=== PATIENT | female | born 1950 | race Two or more races ===

== ENCOUNTER 2022-01-17 23:03 | Inpatient (IN) | payer OTHER ==
[~2022-01-17] VITALS: Ht 172.7 cm; Wt 67.6 kg
--- NOTE | 2022-01-17 23:10 | NUR ---
BIBSELF C/O VOMITING X1 DAY. 20CC OF BLOOD NOTED BY PARAMEDICS AT HOME HX HTN AND THYROID. PT A/OX4. TOLERATING R/A AT 99%; C/O SOB. CONNECTED PT TO POX AND MONITOR. SAFETY MEASURES IN PLACE.
--- NOTE | 2022-01-17 23:20 | NUR ---
DR. ISAÍAS GRIMES AT PT'S BEDSIDE
--- NOTE | 2022-01-17 23:26 | NUR ---
RAC #18G S/L; BLOOD COLLECTED AND SENT TO LAB
[2022-01-17] MEDS ORDERED: MORPHINE SULFATE INJ 2 MG/ML DISP.SYRIN IV ONE (23:30)
[2022-01-17] MEDS ORDERED: IV NS 0.9% 1,000 ML BAG IV ONE (23:30)
[2022-01-17] MEDS ORDERED: PANTOPRAZOLE 40 MG VIAL IV ONE (23:30)
[2022-01-17] MEDS ORDERED: ONDANSETRON HCL/PF 4 MG/2 ML VIAL IVP ONE (23:30)
--- NOTE | 2022-01-17 23:32 | NUR ---
COVID ANTIGEN SWAB COLLECTED AND SENT TO LAB
[2022-01-17] MEDS ORDERED: PANTOPRAZOLE 40 MG VIAL ONE (23:34)
[2022-01-17] MEDS ORDERED: ONDANSETRON HCL/PF 4 MG/2 ML VIAL ONE (23:34)
[2022-01-17] MEDS ORDERED: MORPHINE SULFATE INJ 4 MG/ML DISP.SYRIN ONE (23:35)
--- NOTE | 2022-01-17 23:45 | NUR ---
PT TAKEN TO CT VIA MEI
[2022-01-17 23:46] LABS: BASOPHILS % (AUTO) 0.4 % (0.0-2.0); EOSINOPHILS % (AUTO) 2.3 % (0.0-6.0); HEMATOCRIT 32 % (33-45); HEMOGLOBIN 10.7 g/dL (11.5-14.8); LYMPHOCYTES # (AUTO) 3.8 K/uL (0.8-4.8); LYMPHOCYTES % (AUTO) 36.8 % (20.0-44.0); MEAN CORPUSCULAR HGB CONC 33 g/dl (31.0-36.0); MEAN CORPUSCULAR VOLUME 88 fL (82-100); MONOCYTES # (AUTO) 0.9 K/uL (0.1-1.30); NEUTROPHILS # (AUTO) 5.2 K/uL (1.8-8.9); NEUTROPHILS % (AUTO) 51.5 % (43.0-81.0); PLATELET COUNT (AUTO) 225 K/uL (150-450); RED BLOOD CELL COUNT(AUTO) 3.68 MIL/uL (4.0-5.2); WHITE BLOOD COUNT (AUTO) 10.2 K/uL (4.3-11.0)
--- NOTE | 2022-01-18 00:04 | NUR ---
PT RETURNED TO ER BED [address]
[2022-01-18 00:06] LABS: ALANINE AMINOTRANSFERASE 67 U/L (12-78); ALBUMIN 2.9 g/dL (3.4-5.0); ALKALINE PHOSPHATASE 132 U/L (46-116); ASPARTATE AMINOTRANSFERASE 46 U/L (15-37); BILIRUBIN,DIRECT 0.1 mg/dL (0.0-0.2); BILIRUBIN,TOTAL 0.5 mg/dL (0.2-1.0); CALCIUM, SERUM 8.6 mg/dL (8.5-10.1); CARBON DIOXIDE 25 mmol/L (21-32); CHLORIDE 105 mmol/L (98-107); CREATININE 0.6 mg/dL (0.6-1.3); GLUCOSE 147 mg/dL (74-106); LIPASE 75 U/L (73-393); POTASSIUM 4.3 mmol/L (3.5-5.1); SODIUM SERUM 136 mmol/L (136-145); TOTAL PROTEIN, SERUM 6.4 g/dL (6.4-8.2); UREA NITROGEN, BLOOD 22 mg/dL (7-18)
--- NOTE | 2022-01-18 00:17 | NUR ---
LACTIC ACID 2.0
[2022-01-18] MEDS ORDERED: OCTREOTIDE 50 MCG in IV NS 0.9% 50 ML IJ ONE (00:30)
[2022-01-18] MEDS ORDERED: CEFTRIAXONE 1GM BAG (ER ONLY) 1 GM/50 ML PIGGYBACK IV ONE (00:30)
[2022-01-18 00:31] LABS: BILIRUBIN,URINE NEGATIVE (NEGATIVE); COLOR,URINE YELLOW (YELLOW); NITRITE, URINE NEGATIVE (NEGATIVE); PROTEIN,URINE NEGATIVE (NEGATIVE); UGLUCOSE NEGATIVE (NEGATIVE); UROBILINOGEN,URINE 0.2 EU/dL (0.2)
[2022-01-18 00:33] LABS: LEUKOCYTE ESTERASE ,URINE NEGATIVE (NEGATIVE)
--- NOTE | 2022-01-18 00:35 | NUR ---
JOHNATHON SMITH MD PAGED FOR GI CONSULT. AWAITING CALL BACK
[2022-01-18] MEDS ORDERED: CEFTRIAXONE 1GM BAG (ER ONLY) 50 ML IV ONE (00:46)
[2022-01-18] MEDS ORDERED: ONDANSETRON HCL/PF 4 MG/2 ML VIAL ONE (00:46)
[2022-01-18] MEDS ORDERED: PANTOPRAZOLE 40 MG VIAL ONE ×3 (00:46→08:28)
[2022-01-18] MEDS ORDERED: OCTREOTIDE 100 MCG/ML VIAL ONE (00:51)
[2022-01-18] MEDS ORDERED: ONDANSETRON HCL/PF 4 MG/2 ML VIAL IV ONE (01:00)
[2022-01-18] MEDS ORDERED: PANTOPRAZOLE 40 MG VIAL IV ONE (01:00)
--- NOTE | 2022-01-18 01:00 | NUR ---
Dr Hull on the phone w/ Dr Duncan [facility]
[2022-01-18] MEDS: PANTOPRAZOLE 80 MG in IV NS 0.9% 500 ML IV PRN (01:03)
--- NOTE | 2022-01-18 01:11 | NUR ---
CLINICAL REPORT GIVEN TO BUSINESS COMPUTERS TEACHER
--- NOTE | 2022-01-18 01:54 | NUR ---
called gutierrez @ [phone] and got a verbal auth to admit the patient Addendum: 01/18/22 at 0156 by RAYMOND kathia whitley registered nurse hh case manager.
[2022-01-18] MEDS ORDERED: LEVO100T9 PO (01:59)
[2022-01-18] MEDS ORDERED: AMLO5TAB4 PO (01:59)
[2022-01-18] MEDS ORDERED: ATOR20TA PO (01:59)
--- NOTE | 2022-01-18 02:20 | NUR ---
DR LOUIE FROM [facility] ON THE PHONE WITH DR METZ
--- NOTE | 2022-01-18 02:37 | NUR ---
CALLED DR GARCES. PER HIM HE IS ON VACATION AND DR REDMAN IS COVERING HIM. PLACED MULTIPLE PHONE CALLS TO [phone] AND [phone]. UNABLE TO PAGE DR REDMAN THEY ARE COVERING PALLAVI AND ROGELIO ARE ONLY!
--- NOTE | 2022-01-18 04:55 | NUR ---
SENT A MESSAGE TO DR REDMAN. UNABLE TO CONTACT HIM
--- NOTE | 2022-01-18 06:35 | NUR ---
ON THE PHONE WITH [facility] AT [phone] FOR 30 MINUTES, SPOKE TO ONELIA, NURSE MILK PICKUP DRIVER. UNABLE TO HELP TO PAGE [facility]. PLACED MULTIPLE PHONE CALLS TO [phone], WAS TOLD THAT THEY ONLY COVER [facility].
[2022-01-18] MEDS ORDERED: CHOL100043 PO (07:19)
--- NOTE | 2022-01-18 07:19 | NUR ---
PER KIZZY DAVIS TO ADMIT THE PATIENT UNDER EPIC
--- NOTE | 2022-01-18 07:21 | NUR ---
PAGED DR SOTO
[2022-01-18] MEDS ORDERED: hydrALAZINE HCL IV 20 MG VIAL IV PRN (08:00)
[2022-01-18] MEDS ORDERED: ONDANSETRON HCL/PF 4 MG/2 ML VIAL IVP PRN (08:00)
[2022-01-18] MEDS ORDERED: ACETAMINOPHEN 325 MG TABLET PO PRN (08:00)
[2022-01-18] MEDS ORDERED: MORPHINE SULFATE INJ 2 MG/ML DISP.SYRIN IV PRN (08:00)
[2022-01-18 08:10] LABS: HEMOGLOBIN 10.1 g/dL (11.5-14.8)
[2022-01-18] MEDS ORDERED: LEVOTHYROXINE SODIUM 50 MCG TABLET ONE (08:28)
[2022-01-18] MEDS ORDERED: AMLODIPINE BESYLATE 5 MG TABLET ONE (08:28)
[2022-01-18] MEDS: PANTOPRAZOLE 40 MG VIAL IV SCH ×2 (08:30→17:13)
[2022-01-18] MEDS: AMLODIPINE BESYLATE 5 MG TABLET PO SCH (08:32)
[2022-01-18] MEDS: IV NS 0.9% 1,000 ML IV SCH ×2 (08:46→21:14)
[2022-01-18] MEDS: ATORVASTATIN 10 MG TABLET PO SCH (09:00)
[2022-01-18] MEDS: CHOLECALCIFEROL 1,000 UNIT TABLET (VIT D3) PO SCH (09:00)
[2022-01-18] MEDS ORDERED: ATORVASTATIN 10 MG TABLET ONE ×2 (10:16→10:18)
[2022-01-18] MEDS ORDERED: CHOLECALCIFEROL 1,000 UNIT TABLET (VIT D3) ONE ×2 (10:16→10:17)
--- NOTE | 2022-01-18 10:19 | NUR ---
ROOM 304-2
--- NOTE | 2022-01-18 10:22 | NUR ---
REPORT GIVEN TO NURSE BURCH FOR KAMINI
--- NOTE | 2022-01-18 10:25 | NUR ---
MS RN OPENING NOTES RECEIVED PATIENT FROM ER @ 1025, REPORT WAS GIVEN BY JESUS LEE. PT COMPLAINED OF NAUSEA AND VOMITING, AND HAS A HISTORY OF 6 HEMATEMESIS. VITAL SIGNS ARE STABLE: 117/56, HR: 68, 98%, 0/10, RR: 18; TEMP: 97.9. RA, AND NO S/S OF SOB, DISTRESS, AND DISCOMFORT. NO PRESENT OF N/V AT THIS MOMENT, AND 0/10 PAIN. IV IN R AC 18G AND L AC 18G, INTACT AND PATENT: BOTH SL. WILL CONTINUE TO MONITOR FOR KAMINI.
--- NOTE | 2022-01-18 10:37 | NUR ---
THE PATIENT IS TRANSFERED TO ROOM 304-2 IN STABLE CONDITION AND PER POLICY.
[2022-01-18 12:52] VITALS: BP 117/56
[2022-01-18 16:18] LABS: HEMOGLOBIN 9.6 g/dL (11.5-14.8)
--- NOTE | 2022-01-18 18:19 | NUR ---
MS RN CLOSING NOTES PATIENT IS AWAKE, ALERT, AND ORIENTED X 4. RA, NO S/S OF DISTRESS AND SOB. CURRENTLY, PATIENT HAS NO N/V, BUT STILL HAVE STOMACH DISCOMFORT. VITAL SIGN IS WITHIN NORMAL LIMITS. H&H IS STILL LOW: HBG @08:03: 10.1, 16:08: 9.6; HCT: 30 & 29. 0/10 PAIN. IV IN R AC 18G AND L AC 18G, INTACT AND PATENT: BOTH SL. WILL ENDORSE TO INCOMING SHIFT FOR KAMINI.
--- NOTE | 2022-01-18 19:32 | NUR ---
RN OPENING NOTES RECEIVED PT IN BED, AWAKE, WITH VISITORS AT BEDSIDE. AOx4, ALBANIAN SPEAKING AND ABLE TO MAKE NEEDS KNOWN. ON RA AND TOLERATING WELL. NO SOB NOTED. NO S/SX OF RESPIRATORY DISTRESS NOTED. IV ACCESS IN RAC #18G AND LAC #18G RUNNING NS @ 75 ML/HR. SAFETY PRECAUTIONS IN PLACE: BED IN LOWEST, LOCKED POSITION, SIDERAILS UPx2, AND BRAKES ON. TABLE AND CALL LIGHT WITHIN REACH. WILL CONTINUE TO MONITOR.
[2022-01-18 20:00] VITALS: BP 111/48
[2022-01-19 00:40] LABS: HEMOGLOBIN 8.8 g/dL (11.5-14.8)
[2022-01-19 06:20] LABS: ALBUMIN 2.4 g/dL (3.4-5.0); BILIRUBIN,TOTAL 0.5 mg/dL (0.2-1.0); CALCIUM, SERUM 7.8 mg/dL (8.5-10.1); CREATININE 0.7 mg/dL (0.6-1.3); PHOSPHORUS 3.4 mg/dL (2.5-4.9); POTASSIUM 3.8 mmol/L (3.5-5.1); TOTAL PROTEIN, SERUM 5.5 g/dL (6.4-8.2)
--- NOTE | 2022-01-19 06:32 | NUR ---
RN CLOSING NOTES PT IN BED, ASLEEP. AOx4, MALTESE SPEAKING AND ABLE TO MAKE NEEDS KNOWN. ON RA AND TOLERATING WELL. NO SOB NOTED. NO S/SX OF RESPIRATORY DISTRESS NOTED. IV ACCESS IN RAC #18G AND LAC #18G RUNNING NS @ 75 ML/HR. NO EPISODES OF HEMATEMESIS. ALL ORDERS CARRIED OUT. ALL NEEDS MET. PT KEPT CLEAN AND DRY. SAFETY PRECAUTIONS IN PLACE: BED IN LOWEST, LOCKED POSITION, SIDERAILS UPx2, AND BRAKES ON. TABLE AND CALL LIGHT WITHIN REACH. WILL ENDORSE TO ONCOMING SHIFT FOR KAMINI.
[2022-01-19 06:41] LABS: BASOPHILS % (AUTO) 0.7 % (0.0-2.0); HEMATOCRIT 26 % (33-45); HEMOGLOBIN 8.8 g/dL (11.5-14.8); LYMPHOCYTES # (AUTO) 1.8 K/uL (0.8-4.8); LYMPHOCYTES % (AUTO) 30.3 % (20.0-44.0); MEAN CORPUSCULAR HGB CONC 34 g/dl (31.0-36.0); MEAN CORPUSCULAR VOLUME 87 fL (82-100); MONOCYTES # (AUTO) 0.5 K/uL (0.1-1.30); MONOCYTES % (AUTO) 8.9 % (2.0-12.0); NEUTROPHILS # (AUTO) 3.4 K/uL (1.8-8.9); NEUTROPHILS % (AUTO) 56.1 % (43.0-81.0); PLATELET COUNT (AUTO) 188 K/uL (150-450); RED BLOOD CELL COUNT(AUTO) 2.99 MIL/uL (4.0-5.2)
[2022-01-19] MEDS: LEVOTHYROXINE SODIUM 100 MCG TABLET PO SCH (07:30)
--- NOTE | 2022-01-19 07:30 | NUR ---
RN MS NOTES PT IN BED, AWAKE, ALERT AND ORIENTED, NO COMPLAINT OF PAIN AT THIS TIME, RESPIRATIONS NORMAL, CALL LIGHT WITHIN REACH, ABLE TO AMBULATE WITH SLOW AND STEADY GAIT TO THE BATHROOM, NEEDS ATTENDED.
[2022-01-19 08:30] LABS: HEMOGLOBIN 8.9 g/dL (11.5-14.8)
[2022-01-19] MEDS: AMLODIPINE BESYLATE 5 MG TABLET PO SCH (09:00)
[2022-01-19] MEDS: CHOLECALCIFEROL 1,000 UNIT TABLET (VIT D3) PO SCH (09:00)
[2022-01-19] MEDS: ATORVASTATIN 10 MG TABLET PO SCH (09:00)
[2022-01-19] MEDS: PANTOPRAZOLE 40 MG VIAL IV SCH ×2 (09:36→17:16)
[2022-01-19 16:15] LABS: HEMOGLOBIN 9.7 g/dL (11.5-14.8)
[2022-01-19] MEDS ORDERED: ANESTHESIA TRAY IN PYXIS 1 EA TRAY MC ONE (16:32)
--- NOTE | 2022-01-19 17:52 | NUR ---
RN MS NOTES PT AWAKE, ALERT AND ORIENTED, DENIES PAIN AT THIS TIME, NOT IN DISTRESS, CONSENTS SIGNED BY PT, PICKED UP BY O.R. STAFF FOR EGD, LEFT VIA BED IN STABLE CONDITION.
[2022-01-19] MEDS ORDERED: FAMOTIDINE/PF INJ 20 MG/2 ML VIAL IV ONE (17:55)
[2022-01-19] MEDS ORDERED: OCTREOTIDE 50 MCG in IV NS 0.9% 50 ML IJ ONE (18:30)
[2022-01-19] MEDS ORDERED: CEFTRIAXONE 1 G VIAL IM SCH (18:30)
[2022-01-19 18:45] VITALS: BP 156/51
--- NOTE | 2022-01-19 18:45 | NUR ---
RN MS NOTES PT BACK FROM O.R. VIA BED, AWAKE, ALERT AND ORIENTED, POST PROCEDURE ORDER RECEICED, WITH COMPLAINT OF SOME THROAT DISCOMFORT, DR. CESAR MACEDO, ORDERED TO START PATIENT ON CLEAR LIQUID DIET AND SANDOSTATIN DRIP, VITALS TAKEN AND RECORDED, ALL NEEDS ATTENDED.
[2022-01-19] MEDS: OCTREOTIDE 1,250 MCG in IV NS 0.9% 247.5 ML IV SCH (19:29)
--- NOTE | 2022-01-19 19:30 | NUR ---
RN OPENING NOTES PT IN BED, AWAKE, SPEAKING WITH FAMILY. AOx4. PATIENT IS STABLE. WILL CONTINUE TO MONITOR.
[2022-01-19 20:00] VITALS: BP 146/58
[2022-01-19] MEDS ORDERED: CEFTRIAXONE 1 G in IV D5W 50 ML IV SCH (20:00)
[2022-01-20] MEDS: OCTREOTIDE 1,250 MCG in IV NS 0.9% 247.5 ML IV SCH (05:40)
[2022-01-20 06:28] LABS: BASOPHILS # (AUTO) 0.1 K/uL (0.0-0.2); BASOPHILS % (AUTO) 0.6 % (0.0-2.0); EOSINOPHILS % (AUTO) 0.4 % (0.0-6.0); HEMATOCRIT 29 % (33-45); HEMOGLOBIN 9.7 g/dL (11.5-14.8); LYMPHOCYTES # (AUTO) 1.5 K/uL (0.8-4.8); LYMPHOCYTES % (AUTO) 16.4 % (20.0-44.0); MEAN CORPUSCULAR HGB CONC 34 g/dl (31.0-36.0); MEAN CORPUSCULAR VOLUME 85 fL (82-100); MONOCYTES # (AUTO) 0.6 K/uL (0.1-1.30); MONOCYTES % (AUTO) 6.5 % (2.0-12.0); NEUTROPHILS # (AUTO) 6.9 K/uL (1.8-8.9); NEUTROPHILS % (AUTO) 76.1 % (43.0-81.0); PLATELET COUNT (AUTO) 234 K/uL (150-450); RED BLOOD CELL COUNT(AUTO) 3.34 MIL/uL (4.0-5.2); WHITE BLOOD COUNT (AUTO) 9.1 K/uL (4.3-11.0)
--- NOTE | 2022-01-20 06:38 | NUR ---
RN CLOSING NOTES PT IN BED, AWAKE, WATCHING TV. AOx4, MALTESE SPEAKING. ON RA AND TOLERATING WELL. NO SOB NOTED. NO S/SX OF RESPIRATORY DISTRESS NOTED. IV ACCESS IN RAC #18 RUNNING SANDOSTATIN @ 25 ML/HR. SAFETY PRECAUTIONS IN PLACE: BED IN LOWEST, LOCKED POSITION, SIDERAILS UPx2, AND BRAKES ON. TABLE AND CALL LIGHT WITHIN REACH. WILL CONTINUE TO MONITOR. Addendum: 01/20/22 at 0643 by JONNA WOODS RN WILL ENDORSE TO ONCOMING SHIFT FOR KAMINI.
[2022-01-20 07:05] LABS: CALCIUM, SERUM 8.4 mg/dL (8.5-10.1); CREATININE 0.7 mg/dL (0.6-1.3); POTASSIUM 3.9 mmol/L (3.5-5.1)
--- NOTE | 2022-01-20 07:30 | NUR ---
MS RN OPENING NOTES RECEIVED PATIENT ON BED, AWAKE AND A/O X4. ON ROOM AIR TOLERATING WELL. NO SOB NOTED. NOT IN DISTRESS. WITH NO COMPLAINTS OF PAIN AT THIS TIME. WITH IV ACCESS AT THE RIGHT AC G18 WITH SANDOSTATIN DRIP AT 25ML/HR INFUSING WELL. SAFETY MEASURES IN PLACED. CALL LIGHT WITHIN REACH. BED ON LOWEST LOCKED POSITION, SIDE RAILS UP X2. WILL CONTINUE TO MONITOR.
[2022-01-20 08:00] VITALS: BP 151/50
[2022-01-20 08:36] LABS: HEMOGLOBIN 10.1 g/dL (11.5-14.8)
[2022-01-20] MEDS: LEVOTHYROXINE SODIUM 100 MCG TABLET PO SCH (08:36)
[2022-01-20 08:37] VITALS: BP 151/50
[2022-01-20] MEDS: AMLODIPINE BESYLATE 5 MG TABLET PO SCH (08:37)
[2022-01-20] MEDS: ATORVASTATIN 10 MG TABLET PO SCH (08:37)
[2022-01-20] MEDS: PANTOPRAZOLE 40 MG VIAL IV SCH ×2 (08:37→17:05)
[2022-01-20] MEDS: CHOLECALCIFEROL 1,000 UNIT TABLET (VIT D3) PO SCH (08:37)
[2022-01-20] MEDS ORDERED: OCTREOTIDE 1,250 MCG in IV NS 0.9% 247.5 ML IV SCH (15:00)
[2022-01-20 16:28] LABS: HEMOGLOBIN 9.7 g/dL (11.5-14.8)
--- NOTE | 2022-01-20 18:22 | NUR ---
MS COMPUTER DRAFTER NOTES PATIENT WAS SEEN BY DR. REDMAN AND ORDERED PATIENT FOR DISCHARGE WHEN PATIENT IS ABLE TO TOLERATE FULL LIQUID DIET. PATIENT WAS ABLE TO TOLERATE FULL LIQUID DIET. PATIENT IS FOR DISCHARGE TO HOME. DISCHARGE INSTRUCTION AND EDUCATION PROVIDED TO PATIENT AND EXPLAINED MEDICATIONS AND PRESCRIPTIONS. PATIENT VERBALIZED UNDERSTANDING. DISCHARGE FORM AND BELONGINGS LIST SIGNED BY THE PATIENT. NAME WRIST BAND AND IV LINE REMOVED. ACCOMPANIED PATIENT TO THE LOBBY VIA WHEELCHAIR IN STABLE CONDITION AND LEFT VIA PRIVATE CARE WITH GRAND DAUGHTER. MD AND CHARGE NURSE ARE AWARE OF THE DISCHARGE.
== END 2022-01-20 18:22 | disposition home or self-care (01) | DRG 432 ==
LOC: ER 23:05 → TELE 01-18 10:22 → MED 01-18 10:56
PROVIDERS: ADMIT Internal Medicine; ATTEND Internal Medicine
PROC: 06L38CZ Occlusion of Esophageal Vein with Extraluminal Device, Via Natural or Artificial Opening Endoscopic (ICD-10-PCS; principal; 2022-01-19)
DX: K70.9 Alcoholic liver disease, unspecified (principal); I85.11 Secondary esophageal varices with bleeding; D62 Acute posthemorrhagic anemia; K76.6 Portal hypertension; E03.9 Hypothyroidism, unspecified; K31.89 Other diseases of stomach and duodenum; I10 Essential (primary) hypertension; Z79.899 Other long term (current) drug therapy; E78.5 Hyperlipidemia, unspecified; D64.9 Anemia, unspecified; Z20.822 Contact with and (suspected) exposure to COVID-19
CPT/HCPCS: 36415; 71045-TC; 80048-TC; 80053-TC; 80076-TC; 83605-TC; 83690-TC; 83735-TC; 84100-TC; 84484-TC; 85025-TC; 85027-TC; 85610-TC; 85730-TC; 86850-TC; 87081-TC; C9113; C9803; G0378; J0696; J2270; J2354; J2405; J2704; J2765; J3490; J7030; J7040; J7050; J7060

== ENCOUNTER 2022-02-24 08:45 | Inpatient (IN) | payer OTHER ==
[~2022-02-24] VITALS: Ht 154.9 cm; Wt 64.9 kg
[~2022-02-24 08:45] MED LIST: AMLO5TAB4 PO; ATOR20TA PO; CHOL100043 PO; LEVO100T9 PO
[2022-02-24] MEDS ORDERED: IV NS 0.9% 1,000 ML BAG IV ONE (09:00)
[2022-02-24] MEDS ORDERED: ONDANSETRON HCL/PF - ER 4 MG/2 ML VIAL IV ONE (09:00)
--- NOTE | 2022-02-24 09:00 | NUR ---
Patient came in to the er c/o abdominal discomfort, nausea vomiting "blood" since this morning. On room air, breathing evenly and unlabored. Connected to the monitor and pulse ox. kept comfortable, will continue to monitor accordingly.
[2022-02-24] MEDS ORDERED: ONDANSETRON HCL/PF 4 MG/2 ML VIAL ONE (09:08)
[2022-02-24] MEDS ORDERED: PANTOPRAZOLE 40 MG VIAL ONE (09:13)
[2022-02-24 09:18] LABS: BASOPHILS # (AUTO) 0.1 K/uL (0.0-0.2); BASOPHILS % (AUTO) 0.8 % (0.0-2.0); HEMATOCRIT 29 % (33-45); HEMOGLOBIN 9.4 g/dL (11.5-14.8); LYMPHOCYTES # (AUTO) 1.9 K/uL (0.8-4.8); LYMPHOCYTES % (AUTO) 20.8 % (20.0-44.0); MEAN CORPUSCULAR HGB CONC 33 g/dl (31.0-36.0); MEAN CORPUSCULAR VOLUME 85 fL (82-100); MONOCYTES # (AUTO) 0.8 K/uL (0.1-1.30); MONOCYTES % (AUTO) 8.2 % (2.0-12.0); NEUTROPHILS # (AUTO) 6.4 K/uL (1.8-8.9); NEUTROPHILS % (AUTO) 69.2 % (43.0-81.0); PLATELET COUNT (AUTO) 324 K/uL (150-450); RED BLOOD CELL COUNT(AUTO) 3.41 MIL/uL (4.0-5.2); WHITE BLOOD COUNT (AUTO) 9.2 K/uL (4.3-11.0)
--- NOTE | 2022-02-24 09:20 | NUR ---
SUBMITTED MOVE SHEET
--- NOTE | 2022-02-24 09:21 | NUR ---
ER MD AND CHIEF OF PLANNING GI ON PHONE CONSULT
[2022-02-24] MEDS ORDERED: PANTOPRAZOLE 40 MG VIAL IV ONE (09:30)
[2022-02-24] MEDS ORDERED: PANTOPRAZOLE 80 MG in IV NS 0.9% 100 ML IV ONE (09:30)
[2022-02-24] MEDS ORDERED: PANTOPRAZOLE 80 MG in IV NS 0.9% 500 ML IV ONE (09:30)
[2022-02-24] MEDS ORDERED: OCTREOTIDE 1,250 MCG in IV NS 0.9% 250 ML IV ONE (09:30)
[2022-02-24] MEDS ORDERED: OCTREOTIDE 50 MCG/ML AMPUL IV ONE (09:30)
[2022-02-24 09:33] LABS: MAGNESIUM 2.3 mg/dL (1.8-2.4)
[2022-02-24] MEDS ORDERED: OCTREOTIDE 100 MCG/ML VIAL ONE (09:35)
[2022-02-24 09:39] LABS: ALANINE AMINOTRANSFERASE 51 U/L (12-78); ALKALINE PHOSPHATASE 155 U/L (46-116); ASPARTATE AMINOTRANSFERASE 49 U/L (15-37); BILIRUBIN,DIRECT 0.2 mg/dL (0.0-0.2); BILIRUBIN,TOTAL 0.5 mg/dL (0.2-1.0); CALCIUM, SERUM 8.4 mg/dL (8.5-10.1); CARBON DIOXIDE 23 mmol/L (21-32); CHLORIDE 102 mmol/L (98-107); CREATININE 0.7 mg/dL (0.6-1.3); GLUCOSE 144 mg/dL (74-106); LIPASE 85 U/L (73-393); POTASSIUM 3.2 mmol/L (3.5-5.1); SODIUM SERUM 135 mmol/L (136-145); TOTAL PROTEIN, SERUM 7.4 g/dL (6.4-8.2); UREA NITROGEN, BLOOD 16 mg/dL (7-18)
[2022-02-24 09:44] LABS: ALCOHOL, BLOOD < 3 mg/dL (0-0)
--- NOTE | 2022-02-24 10:53 | NUR ---
verbali clinicals given to dinesh Delarosa from [facility]
[2022-02-24] MEDS ORDERED: ASCO100031 PO (12:48)
[2022-02-24] MEDS ORDERED: FERR325T23 PO (12:48)
[2022-02-24] MEDS ORDERED: FURO20TA4 PO (12:48)
[2022-02-24] MEDS ORDERED: ANESTHESIA TRAY IN PYXIS 1 EA TRAY MC ONE (13:15)
--- NOTE | 2022-02-24 13:15 | NUR ---
PATIENT SIGNED CONSENT FOR EGD, ANESTHESIA AND BLOOS TRANSFUSION.
--- NOTE | 2022-02-24 13:20 | NUR ---
WHEELED OUT VIA GURNEY BY OR NURSES IN STABLE CONDITION
--- NOTE | 2022-02-24 14:12 | NUR ---
REPORT GIVEN TO ANATOLY LEE OF MS UNIT
[2022-02-24] MEDS ORDERED: ONDANSETRON HCL/PF 4 MG/2 ML VIAL IV PRN (16:00)
[2022-02-24] MEDS ORDERED: HYDROCODONE/APAP 5/325MG TABLET PO PRN (16:00)
[2022-02-24] MEDS ORDERED: MORPHINE SULFATE INJ 2 MG/ML DISP.SYRIN IV PRN (16:00)
[2022-02-24] MEDS ORDERED: ZOLPIDEM TARTRATE 5 MG TABLET PO PRN (16:00)
[2022-02-24] MEDS ORDERED: ACETAMINOPHEN 325 MG TABLET PO PRN (16:00)
[2022-02-24 16:16] LABS: THYROID STIMULATING HORMONE 3.007 uIU/mL (0.358-3.74)
[2022-02-24] MEDS: CEFTRIAXONE 1 G in IV D5W 50 ML IV SCH (16:37)
[2022-02-24] MEDS: SOD FERRIC GLUC 125 MG in IV NS 0.9% 100 ML IV SCH (17:05)
--- NOTE | 2022-02-24 19:20 | NUR ---
MS RN OPENING NOTES: RECEIVED PATIENT IN BED, AWAKE. A/O X4. NO S/S OF DISTRESS NOTED. NO COMPLAIN OF PAIN. CALL LIGHT WITHIN REACH. BED ALARM ON. BED IN LOWEST AND LOCKED POSITION. HOB ELEVATED.
--- NOTE | 2022-02-24 19:41 | NUR ---
RN CLOSING NOTE PATIENT RECEIVED ON UNIT @ 1450 VIA [employer] FROM SURGERY DEPARTMENT. EGD WITH BANDING PERFORMED DUE TO PATIENT C/O EMESIS WITH BLOOD. 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 PATIENT AMBULATED TO/FROM BATHROOM WITH NEARBY ASSIST. REMAINS ON CLEAR LIQUID DIET UNTIL FURTHER NOTICE. BOTH IV ACCESS SITE TO RAC AND LAC BOTH PATENT AND INTACT. PROTONIX DRIP IN LAC @ 52 ML/HR RUNNING AND SANDOSTATIN RUNNING IN RAC @ 10ML/HR. C/O OF 05/16 PAIN TO AFFECTED AREA. RECEIVED PRN MORPHINE VIA IV @ 1628. TOLERATED WELL AND MEDICATION EFFECTIVE. SAFETY MEASURES IN PLACE WITH BED IN LOWEST POSITION AND LOCKED. CALL LIGHT WITHIN REACH. SIDERAIL UP X2. WILL CONT TO MONITOR.
[2022-02-24 20:00] VITALS: BP 114/47
[2022-02-25 07:01] LABS: BASOPHILS # (AUTO) 0.1 K/uL (0.0-0.2); BASOPHILS % (AUTO) 0.7 % (0.0-2.0); EOSINOPHILS % (AUTO) 1.4 % (0.0-6.0); HEMATOCRIT 25 % (33-45); HEMOGLOBIN 8.1 g/dL (11.5-14.8); LYMPHOCYTES # (AUTO) 1.5 K/uL (0.8-4.8); LYMPHOCYTES % (AUTO) 16.4 % (20.0-44.0); MEAN CORPUSCULAR HGB CONC 33 g/dl (31.0-36.0); MEAN CORPUSCULAR VOLUME 86 fL (82-100); MONOCYTES # (AUTO) 0.9 K/uL (0.1-1.30); MONOCYTES % (AUTO) 9.8 % (2.0-12.0); NEUTROPHILS # (AUTO) 6.4 K/uL (1.8-8.9); NEUTROPHILS % (AUTO) 71.7 % (43.0-81.0); PLATELET COUNT (AUTO) 261 K/uL (150-450); WHITE BLOOD COUNT (AUTO) 8.9 K/uL (4.3-11.0)
--- NOTE | 2022-02-25 07:10 | NUR ---
MS RN OPENING NOTE: RECEIVED PT. IN BED, AWAKE, AOX4. ABLE TO MAKE NEEDS KNOWN. NO COMPLAINTS OF PAIN AT THIS TIME. ON ROOM AIR, WITH NO S/S OF RESPIRATORY DISTRESS. PT. ON CLEAR LIQUID DIET. IV ON R AC #18G SALINE LOCKED, PATENT AND FLUSHING WELL. SHE ALSO HAS L AC #18G WITH SANDOSTATIN RUNNING @ 10ML/HR, INFUSING WELL. BOTH IV SITES HAVE NO S/S OF INFILTRATION AND PHLEBITIS. SAFETY AND FALL PRECAUTIONS IN PLACE: BED IN LOWEST AND LOCKED POSITION, CALL LIGHT AND BELONGINGS WITHIN EASY REACH, SIDE RAILS UP X2, HOB ELEVATED, BED ALARM ON, NON-SLIP SOCKS ON. WILL CONTINUE TO MONITOR FOR ANY CHANGES.
[2022-02-25] MEDS ORDERED: LEVOTHYROXINE SODIUM 100 MCG TABLET PO SCH (07:30)
[2022-02-25 07:39] LABS: ALBUMIN 2.7 g/dL (3.4-5.0); BILIRUBIN,TOTAL 0.6 mg/dL (0.2-1.0); CREATININE 0.6 mg/dL (0.6-1.3); POTASSIUM 3.7 mmol/L (3.5-5.1); TOTAL PROTEIN, SERUM 6.7 g/dL (6.4-8.2)
[2022-02-25 08:00] VITALS: BP 132/73
[2022-02-25] MEDS: PANTOPRAZOLE 40 MG VIAL IV SCH ×2 (08:20→16:53)
[2022-02-25] MEDS ORDERED: PROP80CA51 PO (08:33)
[2022-02-25] MEDS ORDERED: PANT40TA2 PO (08:34)
[2022-02-25] MEDS ORDERED: CHOLECALCIFEROL 1,000 UNIT TABLET (VIT D3) PO SCH (09:00)
[2022-02-25] MEDS ORDERED: ATORVASTATIN 10 MG TABLET PO SCH (09:00)
[2022-02-25] MEDS ORDERED: PROPRANOLOL LA 60 MG CAP.SA.24H PO SCH (09:00)
[2022-02-25] MEDS ORDERED: FUROSEMIDE 20 MG TABLET PO SCH (09:00)
[2022-02-25 12:31] LABS: HEMOGLOBIN 8.1 g/dL (11.5-14.8)
[2022-02-25] MEDS: CEFTRIAXONE 1 G in IV D5W 50 ML IV SCH (14:34)
[2022-02-25] MEDS: SOD FERRIC GLUC 125 MG in IV NS 0.9% 100 ML IV SCH (14:42)
[2022-02-25 16:00] VITALS: BP 121/51
--- NOTE | 2022-02-25 18:33 | NUR ---
INTERNATIONAL GUEST COORDINATOR NOTE: PT. DC'ED BACK TO HOME VIA PRIVATE TRANSPORTATION. PT. WAS PICKED UP BY ELPIDIO ESQUIVEL AND [id number]. PT. IS AMBULATORY, AOX4. ABLE TO MAKE NEEDS KNOWN. NO COMPLAINTS OF PAIN. ON ROOM AIR, BREATHING EVEN AND UNLABORED. VS STABLE. PT. ON FULL LIQUID DIET. MD ORDERED TO ADVANCE DIET TOLERATED ONCE HOME. IV ON R AC #18G REMOVED, PRESSURE APPLIED, DRESSING C/D/I WITH NO SIGNS OF BLEEDING NOTED. WRITTEN DC INSTRUCTIONS, PT. BELONGING LIST SIGNED BY PT. EDUCATION MATERIALS, HOSPITAL RECORDS, NEW/DISCONTINUED/CONTINUED MEDICATION LIST PROVIDED AND EXPLAINED TO PT. SHE VERBALIZED UNDERSTANDING. DR. GARCES HAD SOME ADDENDUM TO FINALIZED MEDICATION LIST: LASIX 20 MG TAB ONCE DAILY TO BE CONTINUED AT HOME FOR 30 DAYS, ALDACTONE 50 MG PO DAILY FOR 30 DAYS. PT. VERBALIZED UNDERSTANDING. PT. LEFT THE UNIT IN A WHEELCHAIR WITH ELPIDIO ESQUIVEL AND [id number]OR[facility] AT 1825.
== END 2022-02-25 18:34 | disposition home or self-care (01) | DRG 369 ==
LOC: ER 08:53 → TELE 13:56 → MED 16:22
PROVIDERS: ADMIT Internal Medicine; ATTEND Internal Medicine
PROC: 06L38CZ Occlusion of Esophageal Vein with Extraluminal Device, Via Natural or Artificial Opening Endoscopic (ICD-10-PCS; principal; 2022-02-24)
DX: I85.01 Esophageal varices with bleeding (principal); D62 Acute posthemorrhagic anemia; K76.6 Portal hypertension; K31.89 Other diseases of stomach and duodenum; E03.9 Hypothyroidism, unspecified; E78.5 Hyperlipidemia, unspecified; I10 Essential (primary) hypertension
CPT/HCPCS: 36415; 71045-TC; 80048-TC; 80053-TC; 80076-TC; 82728-TC; 83690-TC; 83735-TC; 84443-TC; 84484-TC; 85025-TC; 85027-TC; 85730-TC; 87081-TC; 97530-TC; C9113; C9803; G0378; G0480; J0330; J0696; J2270; J2354; J2405; J2704; J2916; J3490; J7030; J7040; J7050; J7060

== ENCOUNTER 2022-04-28 09:24 | Inpatient (IN) | payer OTHER ==
[2022-04-28] VITALS (9 sets, daily range): BP systolic 102–146; BP diastolic 47–58
[~2022-04-28] VITALS: Ht 154.9 cm; Wt 63.5 kg
[~2022-04-28 09:24] MED LIST changes: -AMLO5TAB4 PO; +ASCO100031 PO; +FERR325T23 PO; +PANT40TA2 PO; +PROP80CA51 PO
--- NOTE | 2022-04-28 09:31 | NUR ---
BIB FAMILY C/O VOMITING AND NOTICE BLOOD IN STOOL X1 DAY. PT ATTACHED TO MONITOR, VITALS ARE WITHIN NORMAL LIMITS. PT APPEAR PALES AND WEAK, HAS BLOOD EMESIS UPON ARRIVAL. WARM BLANKET PROVIDED FOR COMFORT.
--- NOTE | 2022-04-28 09:50 | NUR ---
COVID TEST COLLECTED AND SENT
--- NOTE | 2022-04-28 09:51 | NUR ---
DR KOEHLER AT BEDSIDE
[2022-04-28] MEDS ORDERED: PANTOPRAZOLE 80 MG in IV NS 0.9% 100 ML IV ONE (10:00)
[2022-04-28] MEDS ORDERED: IV NS 0.9% 500 ML BAG IV ONE (10:00)
[2022-04-28] MEDS ORDERED: ONDANSETRON HCL/PF 4 MG/2 ML VIAL IVP ONE (10:00)
[2022-04-28] MEDS ORDERED: CEFTRIAXONE 1GM BAG (ER ONLY) 1 GM/50 ML PIGGYBACK IV ONE (10:00)
[2022-04-28] MEDS ORDERED: ONDANSETRON HCL/PF 4 MG/2 ML VIAL ONE (10:06)
[2022-04-28] MEDS ORDERED: CEFTRIAXONE 1GM BAG (ER ONLY) 50 ML IV ONE (10:06)
--- NOTE | 2022-04-28 10:23 | NUR ---
GI CALLED DR. PULIDO LEFT .
--- NOTE | 2022-04-28 10:24 | NUR ---
CONSENT FOR BLOOD TRANSFUSION OBTAINED AND PLACE IN PT'S CHART
--- NOTE | 2022-04-28 10:25 | NUR ---
MOVE SHEET SUBMITTED.
[2022-04-28 10:27] LABS: BASOPHILS # (AUTO) 0.1 K/uL (0.0-0.2); BASOPHILS % (AUTO) 0.7 % (0.0-2.0); EOSINOPHILS % (AUTO) 0.9 % (0.0-6.0); HEMATOCRIT 26 % (33-45); HEMOGLOBIN 8.3 g/dL (11.5-14.8); LYMPHOCYTES # (AUTO) 2.6 K/uL (0.8-4.8); LYMPHOCYTES % (AUTO) 34.4 % (20.0-44.0); MEAN CORPUSCULAR HGB CONC 32 g/dl (31.0-36.0); MEAN CORPUSCULAR VOLUME 80 fL (82-100); MONOCYTES # (AUTO) 0.4 K/uL (0.1-1.30); NEUTROPHILS # (AUTO) 4.4 K/uL (1.8-8.9); PLATELET COUNT (AUTO) 253 K/uL (150-450); RED BLOOD CELL COUNT(AUTO) 3.25 MIL/uL (4.0-5.2); WHITE BLOOD COUNT (AUTO) 7.4 K/uL (4.3-11.0)
[2022-04-28] MEDS ORDERED: OCTREOTIDE 1,250 MCG in IV NS 0.9% 250 ML IV ONE (10:30)
--- NOTE | 2022-04-28 10:30 | NUR ---
DR. PULIDO SPEAKING WITH DR. KOEHLER.
[2022-04-28] MEDS ORDERED: SPIR50TA5 PO (10:34)
[2022-04-28] MEDS ORDERED: AMLO-212 PO (10:34)
[2022-04-28 10:35] LABS: CARBON DIOXIDE 20 mmol/L (21-32); CHLORIDE 106 mmol/L (98-107); CREATININE 0.7 mg/dL (0.6-1.3); GLUCOSE 141 mg/dL (74-106); POTASSIUM 3.8 mmol/L (3.5-5.1); SODIUM SERUM 138 mmol/L (136-145); UREA NITROGEN, BLOOD 22 mg/dL (7-18)
--- NOTE | 2022-04-28 10:35 | NUR ---
PT TAKEN TO CT VIA MEI
[2022-04-28 10:40] LABS: ALANINE AMINOTRANSFERASE 39 U/L (12-78); ALBUMIN 2.4 g/dL (3.4-5.0); ALKALINE PHOSPHATASE 135 U/L (46-116); ASPARTATE AMINOTRANSFERASE 34 U/L (15-37); BILIRUBIN,DIRECT 0.2 mg/dL (0.0-0.2); BILIRUBIN,TOTAL 0.5 mg/dL (0.2-1.0); LIPASE 29 U/L (73-393); TOTAL PROTEIN, SERUM 5.8 g/dL (6.4-8.2)
--- NOTE | 2022-04-28 10:56 | NUR ---
BED 259
--- NOTE | 2022-04-28 11:11 | NUR ---
RODNEY [phone] WILL CALL US BACK.
--- NOTE | 2022-04-28 12:56 | NUR ---
REPORT GIVEN TO MARTHA LEE FOR KAMINI
[2022-04-28] MEDS ORDERED: MORPHINE SULFATE INJ 2 MG/ML DISP.SYRIN IV PRN (13:00)
[2022-04-28] MEDS ORDERED: OCTREOTIDE 1,250 MCG in IV NS 0.9% 247.5 ML IV PRN (13:00)
--- NOTE | 2022-04-28 13:20 | NUR ---
PT TRASNPORTED TO ICU WITH ACLS PROTOCOLS IN PLACE ADN RECIVED BY JESUS THOMAS.
--- NOTE | 2022-04-28 13:30 | NUR ---
insurance legal assistant notes pt arrived on unit in stable condition running gisselle at 10ml/hr and 1 unit of prbc infusing, started by ER. Vital signs wnl. pt dx: GI BLEED. pt has history of htn, hld, gi bleed, and hypothyroidism. no known allergies, full code, skin intact, no wounds. pt is a/o x 4. pt on RA sating at 98%. Iv access at L AC 20G. and R AC 18g. all safety measures in place, fall precautions in place. will cont to wendy. throughout shift.
[2022-04-28] MEDS: PANTOPRAZOLE 80 MG in IV NS 0.9% 500 ML IV PRN ×2 (13:45→23:40)
[2022-04-28] MEDS: SOD FERRIC GLUC 125 MG in IV NS 0.9% 100 ML IV SCH ×2 (15:49→16:05)
[2022-04-28 15:59] LABS: HEMOGLOBIN 8.6 g/dL (11.5-14.8)
[2022-04-28] MEDS: IV D5 LR 1,000 ML IV PRN (16:44)
--- NOTE | 2022-04-28 19:17 | NUR ---
RN Closing Notes pt is resting in bed, pt is a/o x 4. pt on RA sating at 98%. Iv access at L AC 20G. and R AC 18g. running Rossi at 10ml/hr, d5LR @ 100ml/hr, and protonix at 50ml/hr. All safety measures in place, fall precautions in place. will endorse to maintenance technician 3rd shift nurse for samara.
--- NOTE | 2022-04-28 19:30 | NUR ---
RN/ OPENING NOTES REPORT RECEIVED. PATIENT AWAKE AND ALERT A&OX4. ALL VSS. PATIENT SATTING AT 99% ON ROOM AIR. DIET NPO. IV L AC #20G R AC # IV FLUID RUNNING D5LR @100MLS/HR, SANDOSTATIN @ 10MLS/HR, PROTONIX @50MLS/HR. ALL SAFETY FALL PRECAUTIONS IN PLACE BED LOCK ON, BED IN LOWEST POSITION, SIDE RAILS UP, BED ALARM ON, CALL LIGHT WITHIN REACH, PATIENT TAUGHT HOW TO USE CALL LIGHT AND TO USE IT WHEN SHE NEEDS ASSISTANCE. WILL CONTINUE TO MONITOR.
--- NOTE | 2022-04-28 19:45 | NUR ---
RN/NOTE PATIENT WAS PROVIDED WITH WARM BLANKETS. PATIENT RESTING COMFORTABLE ON THE BED. ALL SAFETY FALL PRECAUTIONS IN PLACE.
[2022-04-28 21:00] LABS: HEMOGLOBIN 7.6 g/dL (11.5-14.8)
[2022-04-29] VITALS (50 sets, daily range): BP systolic 102–159; BP diastolic 34–73
[2022-04-29] MEDS: IV D5 LR 1,000 ML IV PRN ×2 (02:01→22:15)
[2022-04-29 04:32] LABS: BASOPHILS % (AUTO) 0.3 % (0.0-2.0); EOSINOPHILS % (AUTO) 1.7 % (0.0-6.0); HEMATOCRIT 22 % (33-45); HEMOGLOBIN 7.1 g/dL (11.5-14.8); LYMPHOCYTES # (AUTO) 2.5 K/uL (0.8-4.8); LYMPHOCYTES % (AUTO) 19.5 % (20.0-44.0); MEAN CORPUSCULAR HGB CONC 32 g/dl (31.0-36.0); MEAN CORPUSCULAR VOLUME 84 fL (82-100); MONOCYTES # (AUTO) 1.1 K/uL (0.1-1.30); MONOCYTES % (AUTO) 8.4 % (2.0-12.0); NEUTROPHILS # (AUTO) 8.9 K/uL (1.8-8.9); NEUTROPHILS % (AUTO) 70.1 % (43.0-81.0); PLATELET COUNT (AUTO) 195 K/uL (150-450); RED BLOOD CELL COUNT(AUTO) 2.64 MIL/uL (4.0-5.2); WHITE BLOOD COUNT (AUTO) 12.7 K/uL (4.3-11.0)
[2022-04-29 04:42] LABS: CALCIUM, SERUM 7.6 mg/dL (8.5-10.1); CARBON DIOXIDE 22 mmol/L (21-32); CHLORIDE 110 mmol/L (98-107); CREATININE 0.8 mg/dL (0.6-1.3); GLUCOSE 157 mg/dL (74-106); SODIUM SERUM 140 mmol/L (136-145); UREA NITROGEN, BLOOD 15 mg/dL (7-18)
--- NOTE | 2022-04-29 07:15 | NUR ---
RN NOTE RECEIVED PATIENT IN BED RESTING ALERT ORIENTED X4 ON 2L OXYGEN VIA NASAL CANNULA O2:97% IV SITE IS ON RIGHT AC INTACT PATENT,PATIENT ON D5LR 100CC/HR AND PROTONIX 50CC/HR,CONTIENT BOWEL/BLADDER,NPO FOR EGD TODAY,SAFETY MEASURE IMPLEMENT BED IN LOW POSITON AND LOCKED,CALL LIGHT WITHIN REACH CONTINUE TO MONITOR.
--- NOTE | 2022-04-29 07:24 | NUR ---
RN/ OPENING NOTES REPORT GIVEN. PATIENT AWAKE AND ALERT A&OX4. ALL VSS. PATIENT SATTING AT 99% ON 2L NC. DIET NPO. IV R AC # IV FLUID RUNNING D5LR @100MLS/HR, SANDOSTATIN @ 10MLS/HR STOPPED DUE TO PATIENT PULLING OUT HER IV SEVERAL ATTEMPTS WERE MADE TO REINSERT BUT SEVERAL NURSES WERE NOT ABLE TO PUT ANOTHER IV., PROTONIX @50MLS/HR. ALL SAFETY FALL PRECAUTIONS IN PLACE BED LOCK ON, BED IN LOWEST POSITION, SIDE RAILS UP, BED ALARM ON, CALL LIGHT WITHIN REACH, PATIENT TAUGHT HOW TO USE CALL LIGHT AND TO USE IT WHEN SHE NEEDS ASSISTANCE. ALL CARE ENDORSED TO THE DAY SHIFT RN. ALL QUESTIONS ANSWERED. PATIENT DUE TO HAVE EGD TODAY.
[2022-04-29] MEDS: PANTOPRAZOLE 80 MG in IV NS 0.9% 500 ML IV PRN (09:12)
[2022-04-29] MEDS: OCTREOTIDE 1,250 MCG in IV NS 0.9% 247.5 ML IV PRN (09:14)
[2022-04-29] MEDS: CEFTRIAXONE 1 G in IV D5W 50 ML IV SCH (09:36)
--- NOTE | 2022-04-29 10:00 | NUR ---
RN NOTE PATIENT LEFT TO OR FOR EGD.
[2022-04-29] MEDS ORDERED: FENTANYL PF 100MCG/2ML AMPUL ONE (10:39)
[2022-04-29] MEDS ORDERED: SUCCINYLCHOLINE CHLORIDE 20 MG/ML VIAL ONE (10:39)
[2022-04-29] MEDS ORDERED: PROPOFOL 20 ML IV ONE (10:39)
[2022-04-29] MEDS ORDERED: ROCURONIUM BROMIDE 50 MG/5 ML ONE (10:39)
--- NOTE | 2022-04-29 11:35 | NUR ---
RN NOTE PATIENT RETURNED TO HER ROOM, EGD DONE,DR PULIDO ORDERED CONTINUE ALL ORDERS AND CLEAR LIQUID DIET,NOTED AND CARRIED OUT.
--- NOTE | 2022-04-29 13:00 | NUR ---
RN NOTE REPORT GIVEN TO DAXA FOR CONTINUATION OF CARE
[2022-04-29 13:24] LABS: HEMOGLOBIN 5.6 g/dL (11.5-14.8)
--- NOTE | 2022-04-29 14:00 | NUR ---
EGD RESULTS REPORTED TO DR. GARCES. POST PROCEDURE H/H RESULTED TO , 5. WITH ORDERS RECEIVED FOR 2 UNITS OF PRBC.
--- NOTE | 2022-04-29 14:25 | NUR ---
blood transfusing no s/s of reaction
[2022-04-29] MEDS: SOD FERRIC GLUC 125 MG in IV NS 0.9% 100 ML IV SCH (17:30)
--- NOTE | 2022-04-29 20:00 | NUR ---
Received patient A/OX4.Afebrile.Normotensive.SR/ST 103On 2LNC saturation 93%-95%. S/P EGD and banding x4.H/H 5.6/ 2nd UNIT PRBC infusing to JALEN ML site intact.Denies any discomfort.Patient turn self in bed.Safety measures implemented.Call light at bedside.
--- NOTE | 2022-04-29 21:45 | NUR ---
Patient awake denies any discomfort. VSS.Blood transfusion completed without transfusion reaction noted.
--- NOTE | 2022-04-29 22:00 | NUR ---
Patient up to bedside commode with minimal assistance.Voiding and still with bloody stools. Kept clean and dry.Tolerating clear liquids.
[2022-04-29 23:31] LABS: HEMOGLOBIN 8.1 g/dL (11.5-14.8)
[2022-04-30] VITALS (23 sets, daily range): BP systolic 87–143; BP diastolic 33–61
[2022-04-30 04:36] LABS: BASOPHILS # (AUTO) 0.1 K/uL (0.0-0.2); BASOPHILS % (AUTO) 0.5 % (0.0-2.0); EOSINOPHILS % (AUTO) 2.7 % (0.0-6.0); HEMATOCRIT 24 % (33-45); LYMPHOCYTES # (AUTO) 2.9 K/uL (0.8-4.8); LYMPHOCYTES % (AUTO) 19.4 % (20.0-44.0); MEAN CORPUSCULAR HGB CONC 33 g/dl (31.0-36.0); MEAN CORPUSCULAR VOLUME 83 fL (82-100); MONOCYTES % (AUTO) 13.1 % (2.0-12.0); NEUTROPHILS # (AUTO) 9.7 K/uL (1.8-8.9); NEUTROPHILS % (AUTO) 64.3 % (43.0-81.0); PLATELET COUNT (AUTO) 149 K/uL (150-450); RED BLOOD CELL COUNT(AUTO) 2.95 MIL/uL (4.0-5.2)
[2022-04-30 05:11] LABS: CALCIUM, SERUM 7.4 mg/dL (8.5-10.1); CREATININE 0.7 mg/dL (0.6-1.3); POTASSIUM 3.8 mmol/L (3.5-5.1)
--- NOTE | 2022-04-30 06:30 | NUR ---
Patient resting in no acute distress.AM care done.VS remains stable.SR .IVF and Octreotide gtt infusing well.No significant changes noted during the night.Kept warm and comfortable. Call light at bedside.
--- NOTE | 2022-04-30 07:40 | NUR ---
ICU/TN PT IS RESTING .ON 2L N/C SAT O2 -95%.V/S STABLE ,AFEBRILE.NO PAIN REPORTED AT THIS TIME.LEFT UPPER ARM MIDLINE.PT IS ON SANDOSTATIN DRIP ORDERED.AND IV FLUIDS.CONTINENT ,USE BEDSIDE COMMODE.STILL HAS BLOODY STOOL.POST EGD YESTERDAY,S/P 2 PRBC . H/H STABLE.CONTINUE MONITORING.
[2022-04-30] MEDS: IV D5 LR 1,000 ML IV PRN (07:54)
[2022-04-30] MEDS: CEFTRIAXONE 1 G in IV D5W 50 ML IV SCH (08:05)
[2022-04-30] MEDS: OCTREOTIDE 1,250 MCG in IV NS 0.9% 247.5 ML IV PRN (11:34)
--- NOTE | 2022-04-30 13:00 | NUR ---
ICU/RN PT TRANSFERRED TO TELE UNIT.V/S STABLE,AFEBRILE.NO PAIN REPORTED AT THIS TIME.REPORT GIVEN TO ATIYA/JESUS.
--- NOTE | 2022-04-30 15:00 | NUR ---
ms rn received a new transfer from icu,72 year old female,awake,alert,oriented x4,dx gi bleed, no active bleeding at this time, w/ iv of sandostatin at 50ml /hour,denies pain at this time,v/s wnl, will monitor patient.
[2022-04-30] MEDS: SOD FERRIC GLUC 125 MG in IV NS 0.9% 100 ML IV SCH (15:12)
--- NOTE | 2022-04-30 16:23 | NUR ---
ms rn patient on bed, no distress noted,
--- NOTE | 2022-04-30 16:27 | NUR ---
ms rn on bed, no distress noted,family at bedside.
[2022-04-30] MEDS: PANTOPRAZOLE 40 MG VIAL IV SCH (18:18)
--- NOTE | 2022-04-30 18:59 | NUR ---
ms rn on bed, no distress noted,all needs attended.
--- NOTE | 2022-04-30 20:39 | NUR ---
CHIEF CLIENT OFFICER OPENING NOTES: RECEIVED PATIENT AWAKE IN BED, BED IN LOW POSITION, CALL LIGHTS WITHIN REACH, NO COMPLAIN OF PAIN AND DISCOMFORT AT THIS TIME, ON ROOM AIR SATURATING WELL, PATIENT IS A/OX4 ABLE TO MAKE NEEDS KNOWN, ON TELE MONITOR-SR100, PATIENT KEPT CLEAN AND DRY ALL NEEDS MET WILL CONTINUE TO MONITOR.
[2022-05-01] VITALS (10 sets, daily range): BP systolic 111–130; BP diastolic 40–51
--- NOTE | 2022-05-01 06:27 | NUR ---
FINAL ASSEMBLY WORKER CLOSING NOTES: PATIENT SLEEP IN BED COMFORTABLY, AROUSABLE TO VERBAL STIMULI, BED IN LOW POSITION DANIELLA LIGHTS WITHIN REACH, NO COMPLAIN OF PAIN AND DISCOMFORT AT THIS TIME, ON O2 INHALATION SATURATING WELL AT 2LPM, ON TELE [id number], IV LINE AT JALEN ML WITH ONGOING DRLR@100ML/HR INFUSING WELL, PATIENT KEPT CLEAN AND DRY ALL NEEDS MET ENDORSE TO THE MORNING SHIFT.
[2022-05-01 06:45] LABS: BASOPHILS # (AUTO) 0.1 K/uL (0.0-0.2); BASOPHILS % (AUTO) 0.4 % (0.0-2.0); EOSINOPHILS % (AUTO) 3.6 % (0.0-6.0); LYMPHOCYTES # (AUTO) 2.4 K/uL (0.8-4.8); LYMPHOCYTES % (AUTO) 20.8 % (20.0-44.0); MEAN CORPUSCULAR HGB CONC 32 g/dl (31.0-36.0); MEAN CORPUSCULAR VOLUME 84 fL (82-100); MONOCYTES # (AUTO) 1.4 K/uL (0.1-1.30); MONOCYTES % (AUTO) 12.5 % (2.0-12.0); NEUTROPHILS # (AUTO) 7.1 K/uL (1.8-8.9); NEUTROPHILS % (AUTO) 62.7 % (43.0-81.0); PLATELET COUNT (AUTO) 142 K/uL (150-450); RED BLOOD CELL COUNT(AUTO) 2.37 MIL/uL (4.0-5.2); WHITE BLOOD COUNT (AUTO) 11.3 K/uL (4.3-11.0)
[2022-05-01 06:47] LABS: CALCIUM, SERUM 7.5 mg/dL (8.5-10.1); CREATININE 0.7 mg/dL (0.6-1.3)
[2022-05-01 07:01] LABS: HEMATOCRIT 20 % (33-45)
[2022-05-01 07:06] LABS: HEMOGLOBIN 6.4 g/dL (11.5-14.8)
--- NOTE | 2022-05-01 07:18 | NUR ---
RN NOTES: RECEIVED A CRITICAL LABS OF HGB-6.4 AT 0705, ENDORSE TO JESUS ZAMORA FOR CONTINUITY OF CARE
--- NOTE | 2022-05-01 07:30 | NUR ---
SOCCER PLAYER OPENING NOTE Patient in bed, awake. A/O x 4, able to make needs known. On O2 at 2 LPM, no SOB or s/s of distress noted. IV access on JALEN midline infusing D5LR at 100 ml/hr. Patient is also on Sandostatin drip at 10 ml/hr. On tele monitoring showing SR, HR on the 90's. Safety precautions in place: bed in low, locked position; siderails x 2; call light within reach. Will continue to monitor.
--- NOTE | 2022-05-01 08:19 | NUR ---
RN NOTE Called Dr. Neil's office to report Hgb value 6.4, no answer. Will call again.
[2022-05-01 08:37] LABS: EOSINOPHILS % (MANUAL) 2 % (0-4); LYMPHOCYTES % (MANUAL) 17 % (16-48); MONOCYTES % (MANUAL) 8 % (0-11.0); NEUTROPHILS % (MANUAL) 73 (42-76)
--- NOTE | 2022-05-01 08:41 | NUR ---
RN NOTE Called Dr. Neil's office to report Hgb value 6.4, no answer. Will call again.
[2022-05-01] MEDS: PANTOPRAZOLE 40 MG VIAL IV SCH ×2 (09:50→16:13)
--- NOTE | 2022-05-01 10:00 | NUR ---
RN NOTE Called Dr. Neil's office to report Hgb value 6.4, no answer. Will call again.
[2022-05-01] MEDS: CEFTRIAXONE 1 G in IV D5W 50 ML IV SCH (10:15)
--- NOTE | 2022-05-01 10:46 | NUR ---
RN NOTE Called Dr. Neil's office, answering service picked up. Asked to be paged for critical value. Awaiting for Doctor's call back.
[2022-05-01] MEDS: OCTREOTIDE 1,250 MCG in IV NS 0.9% 247.5 ML IV PRN (10:55)
--- NOTE | 2022-05-01 10:55 | NUR ---
RN NOTE Received call back from Dr. Neil, ordered repeat H&H; if Hgb still less than 7, transfuse 1 unit PRBC. Also ordered to change diet to full liquids.
[2022-05-01 12:15] LABS: HEMOGLOBIN 6.7 g/dL (11.5-14.8)
--- NOTE | 2022-05-01 12:16 | NUR ---
RN NOTE Received call from Abelino from lab, patient's Hgb is 6.7. Dr. Neil ordered to transfuse 1 unit of blood.
--- NOTE | 2022-05-01 14:43 | NUR ---
RN NOTE Received order for blood transfusion of 1 unit PRBC. Consent form in chart. Picked up blood at blood bank. 2 RNs verified blood. VS pre transfusion as follows: BP 118/48, HR 82, RR 19, Temp 98, SPO2 100%. Blood transfusion started. Will continue to monitor patient. Addendum: 05/01/22 at 1529 by DINORAH COLLINS RN CORRECTION: SPO2 is 97%
[2022-05-01] MEDS: SOD FERRIC GLUC 125 MG in IV NS 0.9% 100 ML IV SCH (14:49)
--- NOTE | 2022-05-01 14:58 | NUR ---
RN NOTE Patient remains stable with VS: BP 126/51 HR 87, RR 19, Temp 98.1, SPO2 100%. No transfusion reactions noted. Will continue to monitor.
--- NOTE | 2022-05-01 15:58 | NUR ---
RN NOTE Patient remains stable with VS: BP 120/50 HR 74, RR 18, Temp 97.9, SPO2 98%. No transfusion reactions noted. Will continue to monitor.
[2022-05-01] MEDS: IV D5 LR 1,000 ML IV PRN (16:11)
--- NOTE | 2022-05-01 18:13 | NUR ---
RN NOTE Blood transfusion ended. Patient sitting up in bed, just finished dinner, remains stable with VS BP 130/44, HR 82, RR 20, Temp 98.3, SPO2 94%. No transfusion reactions noted. Will continue to monitor.
--- NOTE | 2022-05-01 19:15 | NUR ---
OCULAR CARE TECHNOLOGIST CLOSING NOTE Patient in bed, resting. A/O x 4, able to make needs known. On O2 at 2 LPM, no SOB or s/s of distress noted. IV access on JALEN midline infusing D5LR at 100 ml/hr. Patient is also on Sandostatin drip at 10 ml/hr. On tele monitoring showing SR, HR 85. All needs attended to. Due meds given. Safety precautions maintained: bed in low, locked position; siderails x 2; call light within reach. Will endorse to cnc machinist 2nd shift nurse for KAMINI.
--- NOTE | 2022-05-01 19:55 | NUR ---
RN OPENING NOTES RECEIVED PT IN BED, AWAKE, WITH FAMILY AT BEDSIDE. AOx4, ABLE TO MAKE NEEDS KNOWN AND KAZAKH SPEAKER. ON NC 2LPM AND TOLERATING WELL. NO SOB NOTED. NO S/SX OF RESPIRATORY DISTRESS NOTED. TELE MONITOR DETECTS DETECTS SINUS RHYTHM. IV ACCESS IN JALEN MIDLINE RUNNING D5LR @ 100 ML/HR. SAFETY PRECAUTIONS IN PLACE: BED IN LOWEST, LOCKED POSITION, SIDERAILS UPx2, AND BRAKES ON. TABLE AND CALL LIGHT WITHIN REACH. ALL NEEDS MET AT THIS TIME.
[2022-05-02] VITALS: BP 116/40
[2022-05-02 04:00] VITALS: BP 133/43
[2022-05-02] MEDS: IV D5 LR 1,000 ML IV PRN ×2 (04:21→16:44)
--- NOTE | 2022-05-02 06:35 | NUR ---
RN CLOSING NOTES PT IN BED, ASLEEP, AWAKENS TO VERBAL STIMULI. AOx4, ABLE TO MAKE NEEDS KNOWN AND [place]GI[place] SPEAKER. ON NC 2LPM AND TOLERATING WELL. NO SOB NOTED. NO S/SX OF RESPIRATORY DISTRESS NOTED. TELE MONITOR DETECTS DETECTS SINUS RHYTHM. IV ACCESS IN JALEN MIDLINE RUNNING D5LR @ 100 ML/HR. ALL ORDERS CARRIED OUT. ALL NEEDS MET. PT KEPT CLEAN AND DRY. SAFETY PRECAUTIONS IN PLACE: BED IN LOWEST, LOCKED POSITION, SIDERAILS UPx2, AND BRAKES ON. TABLE AND CALL LIGHT WITHIN REACH. WILL ENDORSE TO ONCOMING SHIFT FOR KAMINI.
[2022-05-02 07:34] LABS: BASOPHILS % (AUTO) 0.4 % (0.0-2.0); EOSINOPHILS % (AUTO) 5.4 % (0.0-6.0); HEMATOCRIT 27 % (33-45); HEMOGLOBIN 9.1 g/dL (11.5-14.8); LYMPHOCYTES # (AUTO) 2.3 K/uL (0.8-4.8); LYMPHOCYTES % (AUTO) 21.4 % (20.0-44.0); MEAN CORPUSCULAR HGB CONC 33 g/dl (31.0-36.0); MEAN CORPUSCULAR VOLUME 86 fL (82-100); MONOCYTES # (AUTO) 1.4 K/uL (0.1-1.30); MONOCYTES % (AUTO) 12.8 % (2.0-12.0); NEUTROPHILS # (AUTO) 6.6 K/uL (1.8-8.9); PLATELET COUNT (AUTO) 152 K/uL (150-450); RED BLOOD CELL COUNT(AUTO) 3.18 MIL/uL (4.0-5.2)
--- NOTE | 2022-05-02 07:46 | NUR ---
RN OPENING NOTES RECEIVED PT IN BED. AOx4, ABLE TO MAKE NEEDS KNOWN AND CZECH SPEAKER. ON NC 2LPM AND TOLERATING WELL. NO SOB NOTED. NO S/SX OF RESPIRATORY DISTRESS NOTED. TELE MONITOR DETECTS DETECTS SINUS RHYTHM 73. IV ACCESS IN JALEN MIDLINE RUNNING D5LR @ 100 ML/HR. SAFETY PRECAUTIONS IN PLACE: BED IN LOWEST, LOCKED POSITION, SIDERAILS UPx2, AND BRAKES ON. TABLE AND CALL LIGHT WITHIN REACH. WILL CONTINUE TO MONITOR.
[2022-05-02 08:00] VITALS: BP 122/50
[2022-05-02] MEDS: PANTOPRAZOLE 40 MG VIAL IV SCH ×2 (08:45→16:05)
[2022-05-02] MEDS: CEFTRIAXONE 1 G in IV D5W 50 ML IV SCH (08:46)
[2022-05-02] MEDS: LEVOTHYROXINE SODIUM 100 MCG TABLET PO SCH (09:54)
--- NOTE | 2022-05-02 10:00 | NUR ---
RN NOTES DR GARCES REQUESTED TO GET INFORMATION ABOUT DR PULIDO WHEN HE WILL DO THE ENDOSCOPE FOR THE PATIENT. INFORMED DR PULIDO BUT HE STATED DR GUERRERO IS COVERING THE PATIENT. CALLED DR GUERRERO [place] OFFICE AT [phone] AND SPOKE WITH PIPELINES MANAGER KEL SHE STATED ONLY COMES THIS OFFICE ON FRIDAYS. SHE GAVE THE [place] OFFICE NUMBER [phone] WILL BE OFFICE AROUND 2-3. CALLED WITH THE NUMBER, NO BODY RESPONDED.
[2022-05-02 12:00] VITALS: BP 127/50
[2022-05-02] MEDS: SOD FERRIC GLUC 125 MG in IV NS 0.9% 100 ML IV SCH (14:42)
[2022-05-02 16:00] VITALS: BP 127/48
--- NOTE | 2022-05-02 18:49 | NUR ---
RN CLOSING NOTES PT IN BED. AOx4, ABLE TO MAKE NEEDS KNOWN AND BENINESE SPEAKER. ON NC 2LPM AND TOLERATING WELL. NO SOB NOTED. NO S/SX OF RESPIRATORY DISTRESS NOTED. TELE MONITOR DETECTS DETECTS SINUS RHYTHM . IV ACCESS IN JALEN MIDLINE RUNNING D5LR @ 100 ML/HR. ALL DUE MEDS GIVEN TO THE PATIENT. LLQ DRESSING FOR PARASENTESIS INTACT. THE FLUID OUTPUT WAS 925 ML. SENT TO THE LAB FOR DIAGNOSTIC TESTS. PER DR GARCES SINCE COULD NOT CONTACT TO DR GUERRERO, DR GARCES STATED WILL CHECK TOMORROW FOR H/H IF NEEDED THEN WILL REQUEST FOR THE ENDOSCOPY.ALL SAFETY PRECAUTIONS IN PLACE: BED IN LOWEST, LOCKED POSITION, SIDE RAILS UPx2, AND BRAKES ON. TABLE AND CALL LIGHT WITHIN REACH. WILL ENDORSE FOR KAMINI.
--- NOTE | 2022-05-02 19:15 | NUR ---
J2EE APPLICATION DEVELOPER NOTES RECEIVED LAYING ON BED ON FOWLERS POSITION,FAMILY MEMBERS AT BEDSIDE,BREATHING REGULAR,NOT IN ANY FORM OF DISTRESS,PALE LOOKING,RECENT .09/02 POST SERIES OF BLOOD TRANSFUSION,S/P PARACENTESIS TODAY ON ,TAKEN OUT 925 ML OF FLUID SENT TO LAB.A/O X3-4,SPEAK ARMENIAN,UNDERSTAND YORUBA.PRESENT IVF INFUSING WELL ON ON JALEN MIDLINE.DENIES DISCOMFORTS AT THE MOMENT,CALL LIGHT IN REACH,NEEDS ANTICIPATED.
--- NOTE | 2022-05-02 19:45 | NUR ---
SSIS ETL DEVELOPER NOTES SR-81 ON TELE MONITOR
[2022-05-02 20:00] VITALS: BP 135/75
--- NOTE | 2022-05-02 21:39 | NUR ---
BD SPECIAL EDUCATION TEACHER NOTES PAIN MANAGEMENT C/O GENERALIZED PAIN 8/10 ON PAIN SCALE,MORPHINE 2MG IV GIVEN ORDERED.
[2022-05-03] VITALS: BP_SYST 116; BP_SYST 145; BP_DIAS 43; BP_DIAS 77
[2022-05-03 04:00] VITALS: BP 135/58
[2022-05-03] MEDS: IV D5 LR 1,000 ML IV PRN (04:33)
--- NOTE | 2022-05-03 06:17 | NUR ---
WELDING MACHINE SETTER NOTES FAIRLY RESTED AT NIGHT,ABDOMEN REMAINS DISTENDED,PAIN IMPROVED WITH MORPHINE AND ABLE TO SLEEP WITH IT.AMBULATE TO THE RESTROOM WITH ASSIST.IVF INFUSING WELL ON RFA SALINE LOCK.ALL DUE MEDS ADMINISTERED SCHEDULED,CALL LIGHT IN REACH,NEEDS ATTENDED.
[2022-05-03 06:27] LABS: BASOPHILS % (AUTO) 0.4 % (0.0-2.0); EOSINOPHILS % (AUTO) 5.1 % (0.0-6.0); HEMATOCRIT 26 % (33-45); HEMOGLOBIN 8.7 g/dL (11.5-14.8); LYMPHOCYTES # (AUTO) 1.7 K/uL (0.8-4.8); LYMPHOCYTES % (AUTO) 17.6 % (20.0-44.0); MEAN CORPUSCULAR HGB CONC 33 g/dl (31.0-36.0); MEAN CORPUSCULAR VOLUME 86 fL (82-100); MONOCYTES # (AUTO) 1.3 K/uL (0.1-1.30); MONOCYTES % (AUTO) 13.6 % (2.0-12.0); NEUTROPHILS # (AUTO) 6.3 K/uL (1.8-8.9); NEUTROPHILS % (AUTO) 63.3 % (43.0-81.0); PLATELET COUNT (AUTO) 161 K/uL (150-450); RED BLOOD CELL COUNT(AUTO) 3.04 MIL/uL (4.0-5.2); WHITE BLOOD COUNT (AUTO) 9.9 K/uL (4.3-11.0)
[2022-05-03 06:48] LABS: CALCIUM, SERUM 7.4 mg/dL (8.5-10.1); CARBON DIOXIDE 26 mmol/L (21-32); CHLORIDE 109 mmol/L (98-107); CREATININE 0.6 mg/dL (0.6-1.3); GLUCOSE 147 mg/dL (74-106); POTASSIUM 3.1 mmol/L (3.5-5.1); SODIUM SERUM 140 mmol/L (136-145); UREA NITROGEN, BLOOD 7 mg/dL (7-18)
[2022-05-03 06:53] LABS: ALANINE AMINOTRANSFERASE 26 U/L (12-78); ALBUMIN 1.9 g/dL (3.4-5.0); ALKALINE PHOSPHATASE 98 U/L (46-116); ASPARTATE AMINOTRANSFERASE 32 U/L (15-37); BILIRUBIN,TOTAL 0.6 mg/dL (0.2-1.0); TOTAL PROTEIN, SERUM 4.7 g/dL (6.4-8.2)
--- NOTE | 2022-05-03 07:30 | NUR ---
RN OPENING NOTES RECEIVED PT IN BED. AOx4, ABLE TO MAKE NEEDS KNOWN AND MALTESE SPEAKER. ON NC 2LPM AND TOLERATING WELL. NO SOB NOTED. NO S/SX OF RESPIRATORY DISTRESS NOTED. TELE MONITOR DETECTS SINUS RHYTHM . IV ACCESS IN JALEN MIDLINE RUNNING D5LR @ 100 ML/HR. SAFETY PRECAUTIONS IN PLACE: BED IN LOWEST, LOCKED POSITION, SIDERAILS UPx2, AND BRAKES ON. TABLE AND CALL LIGHT WITHIN REACH. WILL CONTINUE TO MONITOR.
[2022-05-03] MEDS: LEVOTHYROXINE SODIUM 100 MCG TABLET PO SCH (07:42)
[2022-05-03 08:00] VITALS: BP 124/50
[2022-05-03] MEDS: PANTOPRAZOLE 40 MG VIAL IV SCH (08:21)
[2022-05-03] MEDS: CEFTRIAXONE 1 G in IV D5W 50 ML IV SCH (08:21)
[2022-05-03] MEDS ORDERED: POTASSIUM CHLORIDE 20 MEQ TAB.PRT.SR PO ONE (09:00)
[2022-05-03] MEDS ORDERED: PROP40TA7 PO (09:30)
[2022-05-03] MEDS ORDERED: SPIRONOLACTONE 25 MG TABLET PO SCH (09:30)
[2022-05-03] MEDS ORDERED: FURO-145 PO (09:30)
[2022-05-03] MEDS ORDERED: PROPRANOLOL HCL 40 MG TABLET PO SCH (09:30)
[2022-05-03] MEDS ORDERED: FUROSEMIDE 40 MG TABLET PO SCH (09:30)
[2022-05-03] MEDS ORDERED: PANT40TA2 PO (09:30)
[2022-05-03] MEDS ORDERED: FERR325T23 PO (09:45)
[2022-05-03 12:20] LABS: HEMOGLOBIN 9.3 g/dL (11.5-14.8)
[2022-05-03 13:00] VITALS: BP 127/50
--- NOTE | 2022-05-03 16:39 | NUR ---
RN DISCHARGED NOTES DISCHARGE PATIENT IN STABLE CONDITION WITH STABLE VITAL SIGNS . NO BLEEDING NOTED. NO PAIN, NO DISCOMFORT NOTED. ALL THE DISCHARGE INSTRUCTIONS GIVEN TO MARLON, THE GRAND SON VERBALIZED UNDERSTANDING ALL THE BELONGINGS ACCOUNTED AND SIGNED FOR REMOVE MIDLINE COVERED WITH DRY DRESSING NO BLEEDING NOTED THE TIP OF WAS INTACT REMOVED RIGHT UPPER ARM IV LINE COVERED WITH DRESSING NO BLEEDING NOTED WHEEL THE PATIENT TO THE [facility] WITH THE PATIENT AND PATIENT LEFT HOSPITAL AT 1600 .MD AND CHARGE NURSE AWARE OF THE DISCHARGE.
== END 2022-05-03 16:00 | disposition home health service (06) | DRG 432 ==
LOC: ER 09:31 → ICU 12:48 → TELE 04-30 13:11
PROVIDERS: ADMIT Internal Medicine; ATTEND Internal Medicine
PROC: 30233N1 Transfusion of Nonautologous Red Blood Cells into Peripheral Vein, Percutaneous Approach (ICD-10-PCS; principal; 2022-04-28)
PROC: 06L38CZ Occlusion of Esophageal Vein with Extraluminal Device, Via Natural or Artificial Opening Endoscopic (ICD-10-PCS; 2022-04-29)
PROC: 05HF33Z Insertion of Infusion Device into Left Cephalic Vein, Percutaneous Approach (ICD-10-PCS; 2022-04-29)
PROC: 0W9G3ZZ Drainage of Peritoneal Cavity, Percutaneous Approach (ICD-10-PCS; 2022-05-02)
DX: K74.60 Unspecified cirrhosis of liver (principal); I85.11 Secondary esophageal varices with bleeding; D62 Acute posthemorrhagic anemia; E87.2 Acidosis; K76.6 Portal hypertension; R18.8 Other ascites; K31.89 Other diseases of stomach and duodenum; Z20.822 Contact with and (suspected) exposure to COVID-19; K44.9 Diaphragmatic hernia without obstruction or gangrene; I10 Essential (primary) hypertension; E78.5 Hyperlipidemia, unspecified; Z79.899 Other long term (current) drug therapy; Z87.11 Personal history of peptic ulcer disease; E03.9 Hypothyroidism, unspecified; D64.9 Anemia, unspecified
CPT/HCPCS: 36415; 71045-TC; 76942-TC; 80048-TC; 80053-TC; 80076-TC; 82040-TC; 83605-TC; 83690-TC; 85025-TC; 85027-TC; 85730-TC; 86850-TC; 87070-TC; 87081-TC; 89051-TC; 94799-TC; C9113; C9803; G0378; J0330; J0696; J2270; J2354; J2370; J2405; J2704; J2916; J3010; J3490; J7030; J7040; J7050; J7060; P9016

== ENCOUNTER 2023-06-16 20:38 | Emergency (ER) | payer OTHER, MEDICAID ==
[~2023-06-16] VITALS: Ht 157.5 cm; Wt 55.3 kg
[~2023-06-16 20:38] MED LIST changes: -ASCO100031 PO; -CHOL100043 PO; +FURO-145 PO; +PROP40TA7 PO; -PROP80CA51 PO; +SPIR50TA5 PO
[2023-06-16] MEDS ORDERED: ONDANSETRON HCL/PF 4 MG/2 ML VIAL ONE (21:25)
[2023-06-16] MEDS ORDERED: MORPHINE SULFATE INJ 4 MG/ML DISP.SYRIN ONE (21:25)
[2023-06-16] MEDS ORDERED: ONDANSETRON HCL/PF 4 MG/2 ML VIAL IVP ONE (21:30)
[2023-06-16] MEDS ORDERED: MORPHINE SULFATE INJ 2 MG/ML DISP.SYRIN IV ONE (21:30)
[2023-06-16] MEDS ORDERED: IV NS 0.9% 1,000 ML BAG IV ONE (21:30)
[2023-06-16 21:31] LABS: BASOPHILS % (AUTO) 0.1 % (0.0-2.0); EOSINOPHILS % (AUTO) 0.1 % (0.0-6.0); HEMATOCRIT 46 % (33-45); HEMOGLOBIN 14.7 g/dL (11.5-14.8); LYMPHOCYTES # (AUTO) 1.2 K/uL (0.8-4.8); LYMPHOCYTES % (AUTO) 8.7 % (20.0-44.0); MEAN CORPUSCULAR HEMOGLOBIN 28 PG (26.0-33.0); MEAN CORPUSCULAR HGB CONC 32 g/dl (31.0-36.0); MEAN CORPUSCULAR VOLUME 89 fL (82-100); MONOCYTES # (AUTO) 1.4 K/uL (0.1-1.30); NEUTROPHILS # (AUTO) 11.7 K/uL (1.8-8.9); NEUTROPHILS % (AUTO) 81.1 % (43.0-81.0); PLATELET COUNT (AUTO) 194 K/uL (150-450); RED BLOOD CELL COUNT(AUTO) 5.24 MIL/uL (4.0-5.2); RED CELL DISTRIBUTION WIDTH 15.1 % (11.5-15.0); WHITE BLOOD COUNT (AUTO) 14.4 K/uL (4.3-11.0)
[2023-06-16 22:10] LABS: ALANINE AMINOTRANSFERASE 34 U/L (12-78); ALKALINE PHOSPHATASE 133 U/L (46-116); ASPARTATE AMINOTRANSFERASE 24 U/L (15-37); BILIRUBIN,DIRECT 0.1 mg/dL (0.0-0.2); BILIRUBIN,TOTAL 2.2 mg/dL (0.2-1.0); CALCIUM, SERUM 9.4 mg/dL (8.5-10.1); CARBON DIOXIDE 21 mmol/L (21-32); CREATININE 1.2 mg/dL (0.6-1.3); GLUCOSE 139 mg/dL (74-106); TOTAL PROTEIN, SERUM 8.2 g/dL (6.4-8.2); UREA NITROGEN, BLOOD 17 mg/dL (7-18)
[2023-06-16 22:16] LABS: LACTIC ACID 1.5 mmol/L (0.4-2.0)
[2023-06-16 22:21] LABS: CHLORIDE 92 mmol/L (98-107); LIPASE 20 U/L (16-77); POTASSIUM 4.2 mmol/L (3.5-5.1); SODIUM SERUM 123 mmol/L (136-145)
[2023-06-16] MEDS ORDERED: METR500T PO (22:59)
[2023-06-16] MEDS ORDERED: CIPR-262 PO (22:59)
[2023-06-16] MEDS ORDERED: CIPROFLOXACIN HCL 500 MG TABLET PO ONE (23:00)
[2023-06-16] MEDS ORDERED: METRONIDAZOLE 500 MG TABLET PO ONE (23:00)
[2023-06-16] MEDS ORDERED: METRONIDAZOLE 500 MG TABLET ONE (23:12)
[2023-06-16] MEDS ORDERED: CIPROFLOXACIN HCL 500 MG TABLET ONE (23:12)
[2023-06-16 23:24] VITALS: BP 148/66; TEMP 98.3; O2SAT 99
== END 2023-06-16 23:24 | disposition home or self-care (01) ==
LOC: ER 20:52
DX: R10.31 Right lower quadrant pain (principal); I10 Essential (primary) hypertension; E03.9 Hypothyroidism, unspecified; E78.5 Hyperlipidemia, unspecified
CPT/HCPCS: 99285; 74176; 96374; 71045; 96361; 96375; 93005; 85025; 80048; 87040 ×2; 83605; 83690; 80076; 36415; J2270; J2405; J7030

== ENCOUNTER 2023-06-28 10:10 | Inpatient (IN) | payer OTHER ==
[~2023-06-28] VITALS: Ht 154.9 cm; Wt 56.9 kg
[~2023-06-28 10:10] MED LIST changes: +CIPR-262 PO; +METR500T PO
[2023-06-28] MEDS ORDERED: ONDANSETRON HCL/PF 4 MG/2 ML VIAL IV ONE (10:30)
[2023-06-28] MEDS ORDERED: MORPHINE SULFATE INJ 2 MG/ML DISP.SYRIN IV ONE ×2 (10:30→13:30)
[2023-06-28] MEDS ORDERED: IV NS 0.9% 1,000 ML BAG IV ONE ×2 (10:30→13:30)
[2023-06-28] MEDS ORDERED: MORPHINE SULFATE INJ 4 MG/ML DISP.SYRIN ONE ×2 (10:31→13:40)
[2023-06-28] MEDS ORDERED: ONDANSETRON HCL/PF 4 MG/2 ML VIAL ONE (10:31)
[2023-06-28] MEDS ORDERED: FURO-145 PO (10:50)
[2023-06-28] MEDS ORDERED: PROP80TA4 PO (10:50)
[2023-06-28 11:22] LABS: CALCIUM, SERUM 9.4 mg/dL (8.5-10.1); CREATININE 0.9 mg/dL (0.6-1.3); POTASSIUM 3.7 mmol/L (3.5-5.1)
[2023-06-28 11:30] LABS: APPEARANCE,URINE CLEAR (CLEAR); BILIRUBIN,URINE 1+ (NEGATIVE); BLOOD, URINE NEGATIVE Ery/uL (NEGATIVE); COLOR,URINE DARK YELLOW (YELLOW); KETONES,URINE NEGATIVE (NEGATIVE); LEUKOCYTE ESTERASE ,URINE NEGATIVE (NEGATIVE); NITRITE, URINE NEGATIVE (NEGATIVE); PH,URINE 5.5 (5.0-8.0); PROTEIN,URINE TRACE mg/dl (NEGATIVE); UGLUCOSE NEGATIVE (NEGATIVE); UROBILINOGEN,URINE 0.2 EU/dL (0.2)
[2023-06-28 11:30] LABS: ALBUMIN 3.3 g/dL (3.4-5.0); BASOPHILS % (AUTO) 0.2 % (0.0-2.0); BILIRUBIN,DIRECT 0.4 mg/dL (0.0-0.2); BILIRUBIN,TOTAL 1.3 mg/dL (0.2-1.0); EOSINOPHILS % (AUTO) 0.2 % (0.0-6.0); HEMATOCRIT 47 % (33-45); HEMOGLOBIN 15.5 g/dL (11.5-14.8); LYMPHOCYTES # (AUTO) 1.1 K/uL (0.8-4.8); LYMPHOCYTES % (AUTO) 7.9 % (20.0-44.0); MEAN CORPUSCULAR HEMOGLOBIN 29 PG (26.0-33.0); MEAN CORPUSCULAR HGB CONC 33 g/dl (31.0-36.0); MEAN CORPUSCULAR VOLUME 87 fL (82-100); MONOCYTES # (AUTO) 0.8 K/uL (0.1-1.30); MONOCYTES % (AUTO) 6.3 % (2.0-12.0); NEUTROPHILS # (AUTO) 11.6 K/uL (1.8-8.9); NEUTROPHILS % (AUTO) 85.4 % (43.0-81.0); PLATELET COUNT (AUTO) 206 K/uL (150-450); RED CELL DISTRIBUTION WIDTH 15.2 % (11.5-15.0); TOTAL PROTEIN, SERUM 8.2 g/dL (6.4-8.2); WHITE BLOOD COUNT (AUTO) 13.5 K/uL (4.3-11.0)
[2023-06-28] MEDS ORDERED: IV NS 0.9% 250 ML IV ONE ×2 (11:54→11:59)
[2023-06-28] MEDS ORDERED: IOHEXOL-300 100 ML VIAL IV ONE (11:54)
[2023-06-28 12:04] LABS: ADD URINE CULTURE NO; BACTERIA,URINE Few /HPF (None Seen); RBC,URINE 0-2 /HPF (0-2); SQUAMOUS EPITHELIAL CELL,UR Few /HPF (None Seen); WBC,URINE 0-3 /HPF (0-3)
[2023-06-28] MEDS ORDERED: PIPERACILLIN /TAZOBACTAM 3.375 G in IV D5W 50 ML IV ONE (13:30)
[2023-06-28] MEDS ORDERED: ENOXAPARIN SODIUM 80 MG/0.8 ML DISP.SYRIN SQ ONE (14:12)
[2023-06-28] MEDS ORDERED: ENOXAPARIN SODIUM 60 MG/0.6 ML DISP.SYRIN SQ ONE (14:30)
[2023-06-28 14:33] LABS: LACTIC ACID 2.6 mmol/L (0.4-2.0)
[2023-06-28] MEDS: IV NS 0.9% 1,000 ML IV PRN (16:25)
[2023-06-28] MEDS ORDERED: ZOLPIDEM TARTRATE 5 MG TABLET PO PRN (17:30)
[2023-06-28] MEDS ORDERED: ACETAMINOPHEN 325 MG TABLET PO PRN (17:30)
[2023-06-28] MEDS ORDERED: ONDANSETRON HCL/PF 4 MG/2 ML VIAL IV PRN (17:30)
[2023-06-28] MEDS ORDERED: MORPHINE SULFATE INJ 2 MG/ML DISP.SYRIN IV PRN (18:00)
[2023-06-28] MEDS ORDERED: HYDROCODONE/APAP 5/325MG TABLET PO PRN (18:00)
[2023-06-28 20:00] VITALS: BP 147/55; TEMP 97.8; O2SAT 94
[2023-06-29] MEDS ORDERED: ENOXAPARIN SODIUM 60 MG/0.6 ML DISP.SYRIN SQ SCH (02:00)
[2023-06-29] MEDS: IV NS 0.9% 1,000 ML IV PRN (02:21)
[2023-06-29 08:00] VITALS: BP 120/42; TEMP 98.5; O2SAT 96
[2023-06-29] MEDS ORDERED: LEVOTHYROXINE SODIUM 100 MCG TABLET PO SCH ×2 (08:00→08:30)
[2023-06-29] MEDS ORDERED: APIX5TAB4 PO ×2 (08:18→08:26)
[2023-06-29 08:56] LABS: INR 1.26 (0.91-1.10); PARTIAL THROMBOPLASTIN TIME 39.5 SEC (24.3-34.3); PROTHROMBIN TIME 13.2 SECS (9.2-11.1)
[2023-06-29] MEDS ORDERED: SPIRONOLACTONE 25 MG TABLET PO SCH (09:00)
[2023-06-29] MEDS ORDERED: FUROSEMIDE 20 MG TABLET PO SCH (09:00)
[2023-06-29] MEDS ORDERED: APIXABAN 5 MG TABLET PO SCH (09:00)
[2023-06-29] MEDS ORDERED: PROPRANOLOL HCL 40 MG TABLET PO SCH (09:00)
[2023-06-29 10:42] VITALS: BP 154/61
== END 2023-06-29 16:45 | disposition home or self-care (01) | DRG 394 ==
LOC: ER 10:14 → MED 16:22
PROVIDERS: ADMIT Internal Medicine; ATTEND Internal Medicine
DX: K55.019 Acute (reversible) ischemia of small intestine, extent unspecified (principal); E87.20 Acidosis, unspecified; K52.9 Noninfective gastroenteritis and colitis, unspecified; E03.9 Hypothyroidism, unspecified; E78.5 Hyperlipidemia, unspecified; I10 Essential (primary) hypertension; K74.60 Unspecified cirrhosis of liver
CPT/HCPCS: 36415; 80048-TC; 80076-TC; 81001; 83605-TC; 83690-TC; 85025-TC; 85610-TC; 85730-TC; 87040-TC; A4223; G0378; J1650; J2270; J2405; J2543; J7030; J7050; J7060; Q9967

== ENCOUNTER 2025-02-09 04:49 | Inpatient (IN) | payer MEDICARE, OTHER ==
[~2025-02-09] VITALS: Ht 149.9 cm; Wt 68.9 kg
[~2025-02-09 04:49] MED LIST changes: +APIX5TAB4 PO; -ATOR20TA PO; -CIPR-262 PO; -FERR325T23 PO; -METR500T PO; -PANT40TA2 PO; -PROP40TA7 PO; +PROP80TA4 PO
[2025-02-09] MEDS ORDERED: ONDANSETRON HCL/PF 4 MG/2 ML VIAL ONE (05:25)
[2025-02-09] MEDS ORDERED: MORPHINE SULFATE INJ 4 MG/ML DISP.SYRIN ONE (05:25)
[2025-02-09] MEDS: ONDANSETRON HCL/PF 4 MG/2 ML VIAL IVP ONE (05:42)
[2025-02-09] MEDS: MORPHINE SULFATE INJ 2 MG/ML DISP.SYRIN IV ONE (05:42)
[2025-02-09] MEDS ORDERED: PANTOPRAZOLE 40 MG VIAL ONE (06:00)
[2025-02-09] MEDS: PANTOPRAZOLE 80 MG in IV NS 0.9% 100 ML IV ONE (06:05)
[2025-02-09 06:12] LABS: PLATELET COUNT (AUTO) 209 K/uL (150-450); RED BLOOD CELL COUNT(AUTO) 5.30 MIL/uL (4.0-5.2); RED CELL DISTRIBUTION WIDTH 15.8 % (11.5-15.0); WHITE BLOOD COUNT (AUTO) 11.7 K/uL (4.3-11.0)
[2025-02-09] MEDS ORDERED: HYDROMORPHONE 1 MG/1 ML DISP.SYRIN ONE (06:42)
[2025-02-09] MEDS: HYDROMORPHONE 1 MG/1 ML DISP.SYRIN IV ONE (06:46)
[2025-02-09 06:54] LABS: INR 1.12 (0.91-1.10)
[2025-02-09 07:15] LABS: CALCIUM, SERUM 8.6 mg/dL (8.5-10.1); CREATININE 0.8 mg/dL (0.6-1.3); SODIUM SERUM 133.0 mmol/L (136-145); UREA NITROGEN, BLOOD 12.0 mg/dL (7-18)
[2025-02-09 07:17] LABS: ASPARTATE AMINOTRANSFERASE 35.0 U/L (15-37); TOTAL PROTEIN, SERUM 7.7 g/dL (6.4-8.2)
[2025-02-09] MEDS ORDERED: IOHEXOL-300 100 ML VIAL IV ONE (07:28)
[2025-02-09] MEDS ORDERED: CT SWABBABLE VALVE TRANS SET 1 EA INFUS.SET MC ONE (07:28)
[2025-02-09] MEDS ORDERED: FAMO40TA7 PO (08:23)
[2025-02-09] MEDS ORDERED: LEVO88TA5 PO (08:23)
[2025-02-09] MEDS ORDERED: AMLO2.5T4 PO (08:23)
[2025-02-09] MEDS: PIPERACILLIN /TAZOBACTAM 3.375 G in IV D5W 50 ML IV ONE (08:43)
[2025-02-09 09:36] LABS: PLATELET COUNT (AUTO) 198 K/uL (150-450); RED BLOOD CELL COUNT(AUTO) 5.79 MIL/uL (4.0-5.2); RED CELL DISTRIBUTION WIDTH 15.9 % (11.5-15.0); WHITE BLOOD COUNT (AUTO) 17.0 K/uL (4.3-11.0)
[2025-02-09] MEDS ORDERED: MAGNESIUM HYDROXIDE 30 ML UDC PO PRN (11:00)
[2025-02-09] MEDS ORDERED: MAG HYDROX/AL HYDROX/SIMETH 30 ML UDC PO PRN (11:00)
[2025-02-09] MEDS ORDERED: ACETAMINOPHEN 325 MG TABLET PO PRN (11:00)
[2025-02-09] MEDS ORDERED: DOSING PER PHARMACY-ZOSYN IV 1 EA EA XX PRN (11:00)
[2025-02-09] MEDS ORDERED: Z GUARD REMEDY 4 OZ OINT TP PRN (11:00)
[2025-02-09] MEDS ORDERED: CLONIDINE HCL 0.1 MG TABLET PO PRN (11:30)
[2025-02-09] MEDS: AMLODIPINE BESYLATE 2.5 MG TABLET PO SCH (11:48)
[2025-02-09] MEDS: hydrALAZINE HCL IV 20 MG VIAL IV PRN (11:48)
[2025-02-09] MEDS: PANTOPRAZOLE 40 MG VIAL IV SCH (11:49)
[2025-02-09 12:00] VITALS: BP 195/66; TEMP 97.5; O2SAT 96
[2025-02-09] MEDS: IV NS 0.9% 1,000 ML IV PRN (12:07)
[2025-02-09 16:00] VITALS: BP 126/44; TEMP 97.6; O2SAT 100
[2025-02-09] MEDS: PIPERACILLIN /TAZOBACTAM 3.375 G in IV D5W 100 ML IV SCH (17:26)
[2025-02-10 04:00] VITALS: BP 101/79; TEMP 98.1; O2SAT 98
[2025-02-10 07:29] LABS: CALCIUM, SERUM 8.0 mg/dL (8.5-10.1); CREATININE 1.0 mg/dL (0.6-1.3); PHOSPHORUS 3.6 mg/dL (2.5-4.9); SODIUM SERUM 134.0 mmol/L (136-145); UREA NITROGEN, BLOOD 20.0 mg/dL (7-18)
[2025-02-10] MEDS: LEVOTHYROXINE SODIUM 88 MCG TABLET PO SCH (07:41)
[2025-02-10 07:46] LABS: PLATELET COUNT (AUTO) 182 K/uL (150-450); RED BLOOD CELL COUNT(AUTO) 4.68 MIL/uL (4.0-5.2); RED CELL DISTRIBUTION WIDTH 15.3 % (11.5-15.0); WHITE BLOOD COUNT (AUTO) 21.8 K/uL (4.3-11.0)
[2025-02-10] MEDS: HYDROMORPHONE 1 MG/1 ML DISP.SYRIN IV PRN (08:25)
[2025-02-10] MEDS: PROPRANOLOL HCL 40 MG TABLET PO SCH (08:26)
[2025-02-10 08:32] LABS: LYMPHOCYTES % (MANUAL) 13 % (16-48); MONOCYTES % (MANUAL) 4 % (0-11.0); NEUTROPHILS % (MANUAL) 83 (42-76); PLATELET ESTIMATE ADEQUATE
[2025-02-10] MEDS: ONDANSETRON HCL/PF 4 MG/2 ML VIAL IVP PRN (11:38)
[2025-02-10] MEDS: Magnesium 1GM/D5W 100ML PREMIX 100 ML IV SCH (11:39)
[2025-02-10 12:12] VITALS: BP 128/41; TEMP 98.2; O2SAT 96
[2025-02-10 20:00] VITALS: BP 96/85; TEMP 97.9; O2SAT 99
[2025-02-11 04:00] VITALS: BP 119/49; TEMP 98.2; O2SAT 95
[2025-02-11 07:26] LABS: PHOSPHORUS 2.1 mg/dL (2.5-4.9)
[2025-02-11 07:35] LABS: PLATELET COUNT (AUTO) 156 K/uL (150-450); RED BLOOD CELL COUNT(AUTO) 4.17 MIL/uL (4.0-5.2); RED CELL DISTRIBUTION WIDTH 15.5 % (11.5-15.0); WHITE BLOOD COUNT (AUTO) 10.0 K/uL (4.3-11.0)
[2025-02-11 07:40] LABS: ASPARTATE AMINOTRANSFERASE 22.0 U/L (15-37); TOTAL PROTEIN, SERUM 6.1 g/dL (6.4-8.2)
[2025-02-11 08:00] VITALS: BP 123/48; TEMP 98.1; O2SAT 95
[2025-02-11 08:09] LABS: SODIUM SERUM 138 mmol/L (136-145)
[2025-02-11 08:10] LABS: CALCIUM, SERUM 7.9 mg/dL (8.5-10.1); CREATININE 0.8 mg/dL (0.6-1.3); UREA NITROGEN, BLOOD 16 mg/dL (7-18)
[2025-02-11 09:00] VITALS: BP 120/49; TEMP 98.2; O2SAT 97
[2025-02-11] MEDS: HYDROCORTISONE ACETATE 25 MG/SUPP.RECT SUPP.RECT RC SCH (11:00)
[2025-02-11 12:00] VITALS: BP 118/45; TEMP 98.1; O2SAT 96
[2025-02-11] MEDS: PANTOPRAZOLE 40 MG/PACK PACK PO SCH (12:38)
[2025-02-11] MEDS: PEG 3350/NA SULF,BICARB,CL/KCL 4,000 ML BOTTLE PO ONE (15:35)
[2025-02-11] MEDS: NEUTRA PHOS 1 POWD.PACKET PO ONE (15:37)
[2025-02-11 20:00] VITALS: BP 134/51; TEMP 97.7; O2SAT 97
[2025-02-12 04:37] VITALS: BP 106/50; TEMP 98.2; O2SAT 97
[2025-02-12 08:00] VITALS: BP 106/50; TEMP 97.7; O2SAT 97
[2025-02-12 08:01] LABS: PLATELET COUNT (AUTO) 162 K/uL (150-450); RED BLOOD CELL COUNT(AUTO) 4.30 MIL/uL (4.0-5.2); RED CELL DISTRIBUTION WIDTH 15.4 % (11.5-15.0); WHITE BLOOD COUNT (AUTO) 6.4 K/uL (4.3-11.0)
[2025-02-12 08:09] LABS: CALCIUM, SERUM 7.8 mg/dL (8.5-10.1); CREATININE 0.7 mg/dL (0.6-1.3); SODIUM SERUM 142.0 mmol/L (136-145); UREA NITROGEN, BLOOD 9.0 mg/dL (7-18)
[2025-02-12 08:17] LABS: ASPARTATE AMINOTRANSFERASE 28.0 U/L (15-37); PHOSPHORUS 2.0 mg/dL (2.5-4.9); TOTAL PROTEIN, SERUM 6.0 g/dL (6.4-8.2)
[2025-02-12 09:00] VITALS: BP 126/57
[2025-02-12] MEDS ORDERED: PANT40SU2 PO (17:25)
[2025-02-12] MEDS ORDERED: HYDR25SU13 RC (17:25)
[2025-02-12] MEDS ORDERED: LACT1CAP57 PO (17:30)
[2025-02-12] MEDS ORDERED: METR-147 PO (17:30)
[2025-02-12] MEDS ORDERED: CIPR-262 PO (17:30)
[2025-02-12] MEDS: K PHOS NEUTRAL 250 MG TABLET PO ONE (18:00)
== END 2025-02-12 21:15 | disposition home or self-care (01) | DRG 393 ==
LOC: ER 04:54 → TELE1 09:39 → MEDSG1 11:12
PROVIDERS: ADMIT Internal Medicine; ATTEND Internal Medicine
PROC: 0DJD8ZZ Inspection of Lower Intestinal Tract, Via Natural or Artificial Opening Endoscopic (ICD-10-PCS; principal; 2025-02-12 13:00)
DX: K64.8 Other hemorrhoids (principal); K55.21 Angiodysplasia of colon with hemorrhage; E44.0 Moderate protein-calorie malnutrition; R18.8 Other ascites; R65.10 Systemic inflammatory response syndrome (SIRS) of non-infectious origin without acute organ dysfunction; K52.9 Noninfective gastroenteritis and colitis, unspecified; K74.60 Unspecified cirrhosis of liver; K42.9 Umbilical hernia without obstruction or gangrene; E03.9 Hypothyroidism, unspecified; E78.5 Hyperlipidemia, unspecified; E88.09 Other disorders of plasma-protein metabolism, not elsewhere classified; I10 Essential (primary) hypertension; K44.9 Diaphragmatic hernia without obstruction or gangrene; Z68.30 Body mass index [BMI] 30.0-30.9, adult; D72.829 Elevated white blood cell count, unspecified; Z86.718 Personal history of other venous thrombosis and embolism
CPT/HCPCS: 36415; 71045-TC; 78226; 80048-TC; 80053-TC; 80076-TC; 83605-TC; 83690-TC; 83735-TC; 84100-TC; 85025-TC; 85027-TC; 85610-TC; 86850-TC; 87040-TC; 97110-TC; 97116-TC; 97530-TC; 97535-TC; A4223; A9537; G0378; J0360; J1171; J2270; J2405; J2470; J2543; J2704; J3475; J7030; J7050; J7060; Q9967